=== PATIENT | male | born 1975 | race Caucasian/White ===

== ENCOUNTER 2021-04-25 08:53 | Day surgery (SDC) | payer OTHER, SELFPAY ==
--- NOTE | 2021-04-25 | COLBX_PTH ---
PATIENT: GRANT HAMEED LOC: [facility] U#:[id number] AGE/SX: 45/M ROOM: RE04/25/[address]: Dr. Arcadio Gleason DO : 1975 BED: DIS: 04/25/2021 SPEC #: [id number] RECD: 04/26/21 08:50 STATUS: MERT REDre #: [id number] STEFFEN: 04/25/21 00:[address]: Arcadio Gleason DEPT: SURGICAL PATHOLOGY RECD BY: Grant Montejo ENTERED: 04/26/21 08:51 SP TYPE: COLON BX OTHR DR: Kash Livingston, SALES REPRESENTATIVE [employer]-C Tissues: A - Ileum, NOS B - Transverse colon C - Rectum, NOS Procedures: Surgery Specimen Level IV HEADER OPERATION: Colonoscopy (MAC) PRE-OP DIAGNOSIS: Diverticulosis, diarrhea, lower GI bleed TISSUE SUBMITTED: A - Terminal ileum biopsy, B - Transverse colon polyp biopsy, C - Rectal polyp MICROSCOPIC DIAGNOSIS A. Terminal ileum, biopsy: No pathologic change. B. Transverse colon polyp, biopsy: Fragments of tubular adenoma. C. Rectal polyp, biopsy: Hyperplastic polyp. AM:patrick 04/27/2021 MICROSCOPIC DESCRIPTION Slides are reviewed. GROSS DESCRIPTION A - Received in fixative is one container labeled with the patient's name and designated terminal ileum biopsy. The specimen consists of one irregular fragment of light kelley soft tissue that measures 0.3 x 0.3 x 0.1 cm. The specimen is totally submitted in one cassette. B - Received in fixative is one container labeled with the patient's name and designated transverse colon biopsy of polyp. The specimen consists of multiple irregular fragments of light kelley soft tissue that in aggregate measure 0.7 x 0.5 x 0.1 cm. The specimen is totally submitted in one cassette. C - Received in fixative is one container labeled with the patient's name and designated rectal polyp. The specimen consists of one irregular fragment of light kelley soft tissue that measures 0.5 x 0.4 x 0.1 cm. The specimen is totally submitted in one cassette. / MELITON:patrick 04/26/21 TC:5 CPT: 34846 x3
[2021-04-25 09:34] VITALS: BP 141/82; PULSE 57; RESP 18; TEMP 36.3; O2SAT 99; BMI 50.2
[2021-04-25] MEDS: Lactated Ringers 1,000 ML 100 ML IV (09:42)
--- NOTE | 2021-04-25 10:38 | PCM.HP.BLA ---
History and Physical Date of Admission: 04/25/21 Intake Visit Reasons: HOSP FU FROM [facility] Is patient in pain?: Yes Allergies Sulfa (Sulfonamide Antibiotics) Adverse Reaction (Verified 04/20/21 13:47) Nausea Medications verapamil 240 mg PO DAILY 08/09/13 [History Confirmed 04/02/16] Omeprazole [Prilosec] 40 mg PO DAILY 04/02/16 [History Confirmed 04/02/16] dicyclomine 20 mg PO ACHS #20 cap 04/02/16 [Rx] ondansetron [Zofran Odt] 8 mg PO Q8H PRN PRN #10 04/02/16 [Rx] oxycodone-acetaminophen 1 tab PO Q4H PRN PRN #7 tablet 04/02/16 [Rx] prednisone 40 mg PO DAILY@0800 #10 tablet 04/02/16 [Rx Confirmed 04/20/21] albuterol sulfate 90 mcg/actuation aerosol inhaler 1 inh INHALATION ONCE 04/20/21 [History Confirmed 04/20/21] apixaban 5 mg tablet 10 mg PO BID tab 04/20/21 [History Confirmed 04/20/21] aspirin 81 mg tablet,delayed release 81 mg PO DAILY 04/20/21 [History Confirmed 04/20/21] bisacodyl 5 mg tablet,delayed release 20 mg PO ONCE #4 tab 04/20/21 [Rx Confirmed 04/20/21] cetirizine 10 mg capsule 10 mg PO DAILY PRN 04/20/21 [History Confirmed 04/20/21] ciprofloxacin HCl 500 mg tablet 500 mg PO Q12H #20 tab 04/20/21 [Rx Confirmed 04/20/21] fluticasone furoate 100 mcg-vilanterol 25 mcg/dose inhalation powder 1 inh INHALATION DAILY 04/20/21 [History Confirmed 04/20/21] metronidazole 500 mg tablet 500 mg PO TID #30 tab 04/20/21 [Rx Confirmed 04/20/21] nebivolol 5 mg tablet 5 mg PO BID tab 04/20/21 [History Confirmed 04/20/21] polyethylene glycol 3350 17 gram/dose oral powder 17 g PO DAILY #238 g 04/20/21 [Rx Confirmed 04/20/21] Nurse's Note: [facility] Medical History (Updated 04/20/21 @ 14:[address] Ervin Friend, DO) Allergies Arthritis Asthma Atrial fibrillation Back problem COPD (chronic obstructive pulmonary disease) Diarrhea Diverticulosis DVT (deep venous thrombosis) Gout HTN (hypertension) Hypertriglyceridemia Hypoglycemia IBS (irritable bowel syndrome) Liver disease Lower GI bleed Osteoarthritis Pulmonary embolism Umbilical hernia Surgical History (Updated 04/20/21 @ 13:50 by Nery Avila) History of vasectomy Social History Smoking Status: Former smoker HPI HPI Details: RICHIE HAMEED, is a 45 M who presents to the office today for lower GI bleeding, abdominal pain and bloating. Patient has history of DVT and PE and is on Eliquis and aspirin. His mother has a history of antiphospholipid syndrome. He also carries a history of gout and possible psoriasis. He has been not evaluated by draw off worker. He has been following up with a stock clipper who recently retired. He has had problems with his abdomen in regards to frequent bloating, urgency and diarrhea for several years. He had a CT scan abdomen pelvis back in 2016 which showed significant diverticular disease. He did not know that he had significant diverticular disease. Approximately 2 weeks ago he developed worsening feeling of pressure in his abdomen associated with pressure in his rectum and decreased appetite, discomfort and bloody stool for the last two weeks. Stools have been loose and goes 5-6 times a day and this frequency is normal to him. LLQ and mid lower abdominal pain describes it as nagging and makes him generally feel unwell. Eliquis started December of 2019 for for SVT, DVT and PE management. At this time he is having a lot of lower GI bleeding. They checked his blood count at the emergency room in it seems to be stable. However he is concerned because he needs to take Eliquis and aspirin on a daily basis. He also struggles with gout. He has tried multiple medicines but the only thing that really helps him is colchicine and prednisone. All other 16 review of systems are negative except the pertinent positive mentioned HPI. ROS Const Constitutional: Positive for fatigue, weakness and weight change Eyes Eyes: Positive for blurry vision, irritation, discharge, eye pain and Light sensitivity ENT ENT: Positive for ear or mastoid pain, hearing loss, tinnitus, nasal congestion and hoarseness Resp Respiratory: Positive for shortness of breath and wheezing Cardio Cardiology: Positive for chest pain at rest, leg pain with exertion, shortness of breath and dyspnea on exertion Gastro GI: Positive for abdominal pain, bloating, change in bowel habits, diarrhea, heartburn, Blood in stool and nausea/dyspepsia Genitourinary Male: Positive for urinary incontinence, urinary frequency and urinary urgency Musc Musculoskeletal: Positive for abnormal gait, joint pain, back pain, joint swelling, muscle cramps, muscle weakness, numbness, stiffness, tingling, Arthritis, sciatica, restless legs and leg pain with exertion Neuro Neurology: Positive for abnormal gait, weakness, numbness, tingling and restless legs Psych Psychiatric: Positive for inattentiveness Endo Endocrine: Positive for cold intolerance, fatigue, heat intolerance, increased thirst/drinking, increased urine leakage and weight change Aller/Imm Allergy/Immunologic: Positive for wheezing Cas/Lymp Hematologic/Lymphatic: Positive for easy bleeding and easy bruising Exam Const General: cooperative and comfortable Nutritional Appearance: average body habitus and well nourished HENMT Head: normal to inspection Ears: hearing grossly normal bilaterally Nose: external nose normal Face and sinus: normal facial exam Mouth: oral mucosae normal Throat: posterior oropharynx normal Eyes General: appearance normal, both eyes and all related structures Neck Neck: normal visual inspection Chest Chest palpation & inspection: normal inspection of the chest and normal palpation of entire chest wall Resp Effort & Inspection: normal respiratory effort Auscultation: Bilateral: Clear to Auscultation Cardio Palpation: normal PMI Rate: regular rate Rhythm: regular rhythm GI Inspection: normal to inspection Auscultation: normal bowel sounds Percussion: normal to percussion Palpation: no hepatosplenomegaly Skin General: no rashes or lesions noted Neuro General: patient alert Extrem General: normal to inspection Psych Affect: normal affect Quality Reporting Tobacco Screening ([facility] 138) Smoking Status: Former smoker Assessment and Plan Assessment and Plan (1) Diverticulosis: Status: Acute Orders: Orders: Colonoscopy 04/25/21 Plan - Dr. Ervin Friend, DO: Patient on imaging has a lot of diverticulosis. I suspect that he is having intermittent bleeding secondary to diverticular bleed. He will get a CBC checked. We will also put him on a high-fiber diet and give him a short course of antibiotics. (2) Lower GI bleed: Status: Acute Plan - Dr. Ervin Friend, DO: He will undergo evaluation of his lower GI tract to determine etiology of his lower GI bleeding and his diarrhea. He was explained alternatives, risk, benefits including understanding bleeding, infection, sepsis, perforation, need for emergent surgery . He will have an ASA of 3. He will hold his Eliquis 1 day prior to procedure. (3) Diarrhea: Status: Acute Plan Details Other Medications: New: bisacodyl 20 mg (4 x 5 mg) PO ONCE 4 tabs 0RF polyethylene glycol 3350 (Miralax) 17 grams PO DAILY 238 grams 0RF ciprofloxacin HCl (Cipro) 500 mg PO Q12H 20 tabs 0RF metronidazole 500 mg PO TID 30 tabs 0RF This is an update from an H&P that was done in the office. Nothing has changed since the patient was seen in office.
[2021-04-25 11:03] VITALS: BP 126/78; BP 141/82; PULSE 64; RESP 16; TEMP 36.2; O2SAT 96
--- NOTE | 2021-04-25 11:06 | OP.CCLET_ITS ---
03/21/2022 Tho Sykes Re : Colonoscopy procedure for Grant King Dear Yara This procedure was performed on Sunday, April 25, 2021. My impressions and recommendations are as follows: Impressions : - Five 5 mm polyps in the rectum, in the transverse colon and at the hepatic flexure, removed with a hot snare. Resected and retrieved. Recommendations : - Repeat colonoscopy in 3 years for surveillance based on pathology results. - Return to GI office in 2 weeks. - Continue present medications. My findings are described in the full procedure note, which is enclosed. If I can be of further assistance, please feel free to contact me at . Sincerely, Arcadio Gleason, 04/25/2021 11:05:47 AM This report has been signed electronically.
--- NOTE | 2021-04-25 11:06 | OP.COLON_ITS ---
Patient Name: Grant King Procedure Date: 04/25/2021 10:31 AM Date of : 1975 Age: 45 Procedure: Colonoscopy Indications: Screening for colorectal malignant neoplasm Providers: Arcadio Gleason DO Referring MD: Tho Sykes Medicines: Monitored Anesthesia Care Patient Profile: This is a 45 year old male. Refer to note in patient chart for documentation of history and physical. Last Colonoscopy: none. The patient's first colonoscopy is today. Complications: No immediate complications. Procedure: Pre-Anesthesia Assessment: - Prior to the procedure, a History and Physical was performed, and patient medications and allergies were reviewed. The patient is competent. The risks and benefits of the procedure and the sedation options and risks were discussed with the patient. All questions were answered and informed consent was obtained. Patient identification and proposed procedure were verified by the physician in the pre-procedure area. Mental Status Examination: alert and oriented. Respiratory Examination: clear to auscultation. CV Examination: normal. Prophylactic Antibiotics: The patient does not require prophylactic antibiotics. Prior Anticoagulants: The patient has taken no previous anticoagulant or antiplatelet agents. ASA Grade Assessment: II - A patient with mild systemic disease. After reviewing the risks and benefits, the patient was deemed in satisfactory condition to undergo the procedure. The anesthesia plan was to use moderate sedation / analgesia (conscious sedation). Immediately prior to administration of medications, the patient was re-assessed for adequacy to receive sedatives. The heart rate, respiratory rate, oxygen saturations, blood pressure, adequacy of pulmonary ventilation, and response to care were monitored throughout the procedure. The physical status of the patient was re-assessed after the procedure. After I obtained informed consent, the scope was passed under direct vision. Throughout the procedure, the patient's blood pressure, pulse, and oxygen saturations were monitored continuously. The colonoscope was introduced through the anus and advanced to the cecum, identified by appendiceal orifice and ileocecal valve. There was some mild inflammation seen in the terminal ileum and biopsies were taken. The colonoscopy was performed without difficulty. The patient tolerated the procedure well. The quality of the bowel preparation was good. Moderate Sedation: Moderate (conscious) sedation was administered by the endoscopy nurse and supervised by the endoscopist. The patient's oxygen saturation, heart rate, blood pressure and response to care were monitored. Scope In: 10:44:24 AM Scope Withdrawal Time 0 hours 13 minutes 40 seconds Scope Out: 10:59:55 AM Total Procedure Duration Time 0 hours 15 minutes 31 seconds Findings: The perianal and digital rectal examinations were normal. Five sessile polyps were found in the rectum, transverse colon and hepatic flexure. The polyps were 5 mm in size. These polyps were removed with a hot snare. Resection and retrieval were complete. Verification of patient identification for the specimen was done. Estimated blood loss was minimal. Impression: - Five 5 mm polyps in the rectum, in the transverse colon and at the hepatic flexure, removed with a hot snare. Resected and retrieved. Recommendation: - Repeat colonoscopy in 3 years for surveillance based on pathology results. - Return to GI office in 2 weeks. - Continue present medications. Procedure Code(s): --- Professional --- 63178, Colonoscopy, flexible; with removal of tumor(s), polyp(s), or other lesion(s) by snare technique CPT copyright 2017 [employer]. All rights reserved. The codes documented in this report are preliminary and upon papeterie table assembler review may be revised to meet current compliance requirements. Arcadio Gleason DO 04/25/2021 11:05:47 AM This report has been signed electronically. Number of Addenda: 1 Note Initiated On: 04/25/2021 10:31 AM Addendum Number: 1 Addendum Date: 03/21/2022 4:21:14 PM MAC was used instead of moderate sedation for this patient. Arcadio Gleason DO 03/21/2022 4:21:20 PM This report has been signed electronically.
[2021-04-25 11:10] VITALS: BP 118/77; BP 141/82; PULSE 55; RESP 16; O2SAT 96
[2021-04-25 11:15] VITALS: BP 116/72; BP 141/82; PULSE 51; RESP 16; TEMP 36.3; O2SAT 96
[2021-04-25 11:47] VITALS: BP 141/82
== END 2021-04-25 11:56 ==
LOC: EN 08:55 → AC 08:56
PROVIDERS: PCP Nurse Practitioner Primary Care; Referring Provider Nurse Practitioner Primary Care; Visit Provider Internal Medicine Gastroenterology
PROC: 0DJD8ZZ Inspection of Lower Intestinal Tract, Via Natural or Artificial Opening Endoscopic (ICD-10-PCS; CPT 45378; principal; 2021-04-25 09:55)
DX: Z12.11 Encounter for screening for malignant neoplasm of colon (principal); D12.3 Benign neoplasm of transverse colon; K62.1 Rectal polyp; K57.30 Diverticulosis of large intestine without perforation or abscess without bleeding; M19.90 Unspecified osteoarthritis, unspecified site; J44.9 Chronic obstructive pulmonary disease, unspecified; I48.91 Unspecified atrial fibrillation; I10 Essential (primary) hypertension; E78.00 Pure hypercholesterolemia, unspecified; M10.9 Gout, unspecified; Z86.718 Personal history of other venous thrombosis and embolism; Z86.711 Personal history of pulmonary embolism; Z79.02 Long term (current) use of antithrombotics/antiplatelets; Z79.51 Long term (current) use of inhaled steroids; Z79.899 Other long term (current) drug therapy; Z87.891 Personal history of nicotine dependence
CPT/HCPCS: 45380; 87426; 88305; J7120; J2405

== ENCOUNTER → 2021-05-12 07:05 | Outpatient (CLI) | payer OTHER, SELFPAY ==
[2021-05-13 13:30] LABS: Immunoglobulin G 853 mg/dL (603-1613)
[2021-05-14 13:07] LABS: Anti-Centromere B Ab <0.2 AI (0.0-0.9); Anti-Chromatin <0.2 AI (0.0-0.9); Anti-Jo <0.2 AI (0.0-0.9); Anti-Scleroderma-70 AB <0.2 AI (0.0-0.9); RNP Ab 0.2 AI (0.0-0.9); SJOGREN'S Anti-SS-A test < 0.2 AI (0.0-0.9); SJOGREN'S Anti-SS-B test < 0.2 AI (0.0-0.9); Smith Ab <0.2 AI (0.0-0.9)
[2021-05-14 13:19] LABS: Anti-dsDNA Ab 1 IU/mL (0-9)
== END ==
PROVIDERS: PCP Nurse Practitioner Primary Care; Referring Provider Internal Medicine Gastroenterology; Visit Provider Internal Medicine Gastroenterology
DX: R19.7 Diarrhea, unspecified (principal)
CPT/HCPCS: 36415; 82784; 86225; 86235

== ENCOUNTER 2021-07-27 09:05 | Outpatient (CLI) | payer OTHER, SELFPAY ==
--- NOTE | 2021-07-27 09:13 | RAD_ITS ---
STUDY: X-RAY - PELVIS REASON FOR EXAM: Male, 45 years old. SPONDYLOSIS TECHNIQUE: One view of the pelvis was obtained. COMPARISON: None. FINDINGS: There is a non-specific bowel gas pattern. Normal visualized soft tissue structures. There is narrowing with cortical sclerosis and osteophyte formation of the sacroiliac joint consistent with degenerative osteoarthritic changes. This is worse on the right side. Normal visualized bilateral superior and inferior pubic rami. Normal pubic symphysis. Normal ischial tuberosities. Normal visualized right femoral head. Normal right acetabulum. Normal right hip joint. Normal visualized left femoral head. Normal left acetabulum. Normal left hip joint. RAD/Pelvis 1 or 2 Views IMPRESSION: Joint space narrowing of the right sacroiliac joint with sclerosis. Electronically Signed: Bashir Bustillos MD at 13:35 EST , Service support ,
--- NOTE | 2021-07-27 09:14 | RAD_ITS ---
STUDY: X-RAY CHEST REASON FOR EXAM: Male, 45 years old. SPONDYLOSIS TECHNIQUE: PA and lateral views of the chest. COMPARISON: None. FINDINGS: There is hyperinflation of the lungs consistent with chronic obstructive lung disease (COPD). There is no demonstrated pleural abnormality. Normal size heart. Normal mediastinum and parminder. Normal visualized pulmonary arteries. Normal visualized aortic arch and descending thoracic aorta. There are diffuse degenerative changes of the visualized thoracic spine. Normal visualized ribs, clavicles, and shoulders. There is no demonstrated abnormality of the visualized soft tissue structures of the upper abdomen. RAD/Chest PA and Lateral IMPRESSION: Hyperinflation. Electronically Signed: Bashir Bustillos MD at 13:35 EST , Service support ,
[2021-07-27 10:09] LABS: Absolute Lymphocyte Count 2.06 X10^3/uL (0.83-4.51); Absolute Neutrophil Count 3.5 X10^3/uL (2.0-7.7); Basophil# 0.03 X10^3/uL; Basophil% 0.5 % (0-1); Eosinophils% 1.6 % (0-5); Hematocrit 44.5 % (40-54); Hemoglobin 14.9 g/dL (13.0-16.5); Lymphocyte # 2.06 X10^3/ul (0.83-4.51); Lymphocyte % 32.9 % (19-41); Mean Corp Hgb Conc 33.5 g/dL (32-36); Mean Corpuscular Hgb 29.7 pg (27.0-32.0); Mean Corpuscular Volume 88.8 fL (80-94); Mean Platelet Vol. 10.2 fl (6.2-12.0); NRBC Flagged by Analyzer 0 % (0-5); Neutrophil # 3.53 X10^3/uL (2.7-7.7); Neutrophil % 56.4 % (47-70); Platelet Count 216 K/mm3 (150-450); RBC Distribution Width CV 12.9 % (11.6-14.6); RBC Distribution Width SD 41.7 fl (35.1-43.9); Red Blood Count 5.01 M/mm3 (4.6-6.2); White Blood Count 6.3 K/mm3 (4.4-11.0)
[2021-07-27 10:53] LABS: ALB/GLOB Ratio 1.1 RATIO (0.9-2.4); AST(SGOT) 19 U/L (15-37); Alanine Aminotransfer ALT/SGPT 49 U/L (16-61); Albumin, Serum 4.1 g/dL (3.2-5.0); Alkaline Phosphatase 53 U/L (45-117); Anion Gap 8 (5-15); BUN 15 mg/dL (7-18); BUN/Creat Ratio 18.1 RATIO (10-20); CRP < 2.90 mg/L (0.0-3.0); Calcium,Total 9.6 mg/dL (8.5-10.1); Chloride 108 mmol/L (98-107); Creatinine, Serum 0.83 mg/dL (0.70-1.30); EST Glomerular Filtration Rate 106 mL/min (>60); Est Glom Filt Rate - Afr Amer 128 mL/min (>60); Globulin 3.6 g/dL (2.2-4.2); Glucose 102 mg/dL (74-106); Potassium 4.1 mmol/L (3.5-5.1); Protein, Total 7.7 g/dL (6.4-8.2); Rheumatoid Factor < 10.0 IU/mL (<15); Sodium Level 140 mmol/L (136-145); Uric Acid 8.8 mg/dL (3.5-7.2)
[2021-07-27 11:09] LABS: Hepatitis B Surface Antibody Non-Reactive; Hepatitis B Surface Antigen Non-Reactive (Nonreactive); Hepatitis C Antibody Non-Reactive (Nonreactive)
[2021-07-27 11:11] LABS: Erythrocyte Sedimentation Rate 20 mm/hr (0-20)
[2021-07-28 12:12] LABS: ANTINUCLEAR ANTIBODIES DIRECT Negative (Negative)
[2021-07-31 04:07] LABS: QNTFERON TB Mitogen Value > 10.00 IU/mL (.); QNTFERON TB Nil Value 0.05 IU/mL (.); QNTFERON TB1+ Ag Value 0.95 IU/mL (.); QNTFERON TB2+ Ag Value 0.96 IU/mL (.)
[2021-07-31 08:49] LABS: CCP IgG Antibodies 4 units (0-19); QNTIFERON TB Positive Criteria Positive (Negative)
== END 2021-07-27 23:59 | disposition short-term general hospital (02) ==
PROVIDERS: PCP Nurse Practitioner Primary Care; Referring Provider Internal Medicine Rheumatology; Visit Provider Internal Medicine Rheumatology
DX: L40.59 Other psoriatic arthropathy (principal); J44.9 Chronic obstructive pulmonary disease, unspecified; I48.91 Unspecified atrial fibrillation; L40.8 Other psoriasis; M47.897 Other spondylosis, lumbosacral region; M21.41 Flat foot [pes planus] (acquired), right foot; K76.0 Fatty (change of) liver, not elsewhere classified; H93.13 Tinnitus, bilateral; Z86.718 Personal history of other venous thrombosis and embolism
CPT/HCPCS: 36415; 71046; 72170; 80053; 84550; 85025; 85652; 86038; 86140; 86200; 86431; 86480; 86706; 86803; 87340

== ENCOUNTER 2021-09-05 07:31 | Outpatient (CLI) | payer OTHER, SELFPAY ==
--- NOTE | 2021-09-05 07:34 | CT_ITS ---
STUDY: CT ABDOMEN AND PELVIS WITH CONTRAST REASON FOR EXAM: Male, 45 years old. History of chronic diffuse abdominal pain and left lower quadrant pain. RADIATION DOSAGE (If Supplied By Facility): CTDIvol = ( 15.41 ) mGy, DLP = ( 1332.29 ) mGycm TECHNIQUE: Transaxial images were obtained from the dome of the diaphragm to the symphysis pubis with oral contrast. Oral and amp; IV Gastrografin and amp; 100mL Isovue-300 was administered. Sagittal and coronal images were reconstructed. Individualized dose optimization techniques were used for this CT. COMPARISON: Comparison is made with prior examination dated 08/09/2013. FINDINGS: The visualized lung bases are unremarkable. The visualized portions of the heart are within normal limits. There is decreased attenuation of the liver consistent with steatosis. Normal gallbladder and extrahepatic biliary system. Normal spleen. Normal pancreas. Normal bilateral adrenal glands. Normal right kidney. Normal left kidney. Normal visualized stomach. Normal small intestine. Moderate amount of fecal material is seen in the colon. Scattered sigmoid diverticula. The appendix is visualized and appears normal. Normal abdominal aorta. Normal inferior vena cava. There is borderline retroperitoneal lymphadenopathy with enlarged nodes no greater than 10mm in the short axis diameter. Normal urinary bladder. Normal abdominal wall. There are mild degenerative changes of the visualized lumbar spine. CT/Abdomen/Pelvis WITH Contrast IMPRESSION: Diffuse fatty infiltration of the liver. Scattered sigmoid diverticula. Electronically Signed: Bashir Bustillos MD at 9:33 EST ,
[2021-09-05 08:00] LABS: CREATININE FINGERSTICK 0.9 mg/dL (0.70-1.30); EGFR FINGERSTICK > 60.0000 mL/min (>60)
== END 2021-09-05 23:59 | disposition home or self-care (01) ==
PROVIDERS: PCP Nurse Practitioner Primary Care; Referring Provider Internal Medicine Gastroenterology; Visit Provider Internal Medicine Gastroenterology
DX: R10.9 Unspecified abdominal pain (principal)
CPT/HCPCS: 74177; Q9967

== ENCOUNTER 2021-09-21 09:48 | Outpatient (CLI) | payer OTHER, SELFPAY ==
[2021-09-21 10:46] LABS: Erythrocyte Sedimentation Rate 4 mm/hr (0-20); Prothrombin Time (Protime)PT. 12.4 SECONDS (11.7-14.9)
[2021-09-21 10:50] LABS: Absolute Lymphocyte Count 2.19 X10^3/uL (0.83-4.51); Absolute Neutrophil Count 2.9 X10^3/uL (2.0-7.7); Basophil# 0.06 X10^3/uL; Eosinophil# 0.12 X10^3/uL; Eosinophils% 2.1 % (0-5); Hemoglobin 14.1 g/dL (13.0-16.5); Lymphocyte # 2.19 X10^3/ul (0.83-4.51); Lymphocyte % 37.9 % (19-41); Mean Corp Hgb Conc 34.4 g/dL (32-36); Mean Corpuscular Hgb 31.1 pg (27.0-32.0); Mean Corpuscular Volume 90.3 fL (80-94); Mean Platelet Vol. 10.1 fl (6.2-12.0); Monocyte# 0.52 X10^3/uL; NRBC Flagged by Analyzer 0 % (0-5); Neutrophil # 2.86 X10^3/uL (2.7-7.7); Neutrophil % 49.5 % (47-70); Platelet Count 184 K/mm3 (150-450); RBC Distribution Width CV 13.3 % (11.6-14.6); RBC Distribution Width SD 44.2 fl (35.1-43.9); Red Blood Count 4.54 M/mm3 (4.6-6.2); White Blood Count 5.8 K/mm3 (4.4-11.0)
[2021-09-21 11:13] LABS: ALB/GLOB Ratio 1.2 RATIO (0.9-2.4); AST(SGOT) 14 U/L (15-37); Alanine Aminotransfer ALT/SGPT 39 U/L (16-61); Alkaline Phosphatase 44 U/L (45-117); Anion Gap 5 (5-15); BUN 16 mg/dL (7-18); BUN/Creat Ratio 17.2 RATIO (10-20); Bilirubin, Direct 0.29 mg/dL (0.00-0.30); CRP < 2.90 mg/L (0.0-3.0); Calcium,Total 8.9 mg/dL (8.5-10.1); Chloride 109 mmol/L (98-107); Cholesterol 197 mg/dL (200); Creatinine, Serum 0.93 mg/dL (0.70-1.30); EST Glomerular Filtration Rate 92 mL/min (>60); Est Glom Filt Rate - Afr Amer 112 mL/min (>60); Ferritin 162 ng/mL (26-388); Globulin 3.4 g/dL (2.2-4.2); Glucose 106 mg/dL (74-106); High Density Lipoprotein 47 mg/dL; LDH 159 U/L (87-241); Protein, Total 7.4 g/dL (6.4-8.2); Sodium Level 141 mmol/L (136-145); Triglycerides 310 mg/dL; Very Low Density Lipoprotein 62 mg/dL (5-40)
[2021-09-21 11:17] LABS: Hemoglobin A1c 5.4 % (3.8-5.6)
[2021-09-21 11:33] LABS: HIV - WCH Non-Reactive (Nonreactive)
[2021-09-24 12:18] LABS: Anti-Mitochondrial AB <20.0 Units (0.0-20.0)
[2021-09-25 04:07] LABS: Angiotensin Convert Enzyme 24 U/L (14-82); Ceruloplasmin 17.2 mg/dL (16.0-31.0); Cytoplasmic Ab (C-ANCA) <1:20 titer (Neg:<1:20); Endomysial Antibody IgA Negative (Negative); Immunoglobulin A 131 mg/dL (90-386)
[2021-09-25 11:54] LABS: Anti-Smooth Muscle ABS 4 Units (0-19); Copper, Serum or Plasma 74 ug/dL (69-132); Haptoglobin 80 mg/dL (23-355); Perinuclear Ab (P-ANCA) <1:20 titer (Neg:<1:20); t-Transglutaminase IgA <2 U/mL (0-3)
== END 2021-09-21 23:59 | disposition home or self-care (01) ==
LOC: LAB 09:49
PROVIDERS: PCP Nurse Practitioner Primary Care; Referring Provider Nurse Practitioner Adult Health; Visit Provider Nurse Practitioner Adult Health
DX: K76.0 Fatty (change of) liver, not elsewhere classified (principal)
CPT/HCPCS: 36415; 80053; 80061; 82105; 82140; 82164; 82248; 82390; 82525; 82728; 82784; 83010; 83036; 83516; 83615; 85025; 85610; 85652; 86140; 86255; 86256; 86703

== ENCOUNTER 2021-10-18 07:48 | Outpatient (CLI) | payer OTHER, SELFPAY ==
--- NOTE | 2021-10-18 07:52 | US_ITS ---
STUDY: ABDOMINAL ULTRASOUND - ELASTOGRAPHY REASON FOR VISIT: Male, 45 years old. Fatty infiltration of the liver. TECHNIQUE: Liver stiffness measurements were obtained on a [employer] RS 85 ultrasound machine using a CA 1-7 probe following the SRU guidelines. 3 measurements were obtained using a 2-D-SWE method. The IQR/M was 12% suggesting a quality data set. TECHNICAL QUALITY: Adequate. COMPARISON: Comparison is made with prior sonogram of the right upper quadrant done earlier today. FINDINGS: Liver: Fatty infiltration of the liver. Median liver stiffness measured 6.3 kPa. US/Elastography Parenchyma/Organ IMPRESSION: Liver stiffness measures 6.3 kPa compatible with F2-F3 (Mild to moderate liver fibrosis) Metavir score. Electronically Signed: Bashir Bustillos MD at 9:44 EDT ,
--- NOTE | 2021-10-18 07:55 | US_ITS ---
STUDY: ABDOMINAL ULTRASOUND - RIGHT UPPER QUADRANT REASON FOR VISIT: Male, 45 years old FATTY LIVER TECHNIQUE: Ultrasound evaluation of the right upper quadrant was performed with real-time and static vick-scale imaging. TECHNICAL QUALITY: Adequate. COMPARISON: Comparison is made with prior CT scan of the abdomen dated 09/05/2021. FINDINGS: Liver: The liver measures 15.3 cm. There is increased echogenicity consistent with fatty infiltration. Focal fatty sparing is seen along the gallbladder fossa. The bile ducts are within normal limits. There is hepatic color flow. The direction of portal flow is hepatopetal. There is no demonstrated mass lesion. Gallbladder: Normal distended gallbladder. The gallbladder wall measures 2.9 mm. There is a negative sonographic Ridley''s sign. There is no pericholecystic fluid. There are no gallstones. Common Bile Duct (C.B.D.): The common bile duct measures 4.5 mm. Pancreas: Normal size of the head, body of the pancreas. The tail portion is obscured due to overlying bowel gas. There is increased echogenicity of the pancreas. There is no demonstrated pancreatic mass or cyst. Right Kidney: Normal size of the right kidney. The right kidney measures 13.1 cm x 6.1 cm x 5 cm. Normal renal cortex. The right cortex measures 2 cm. There is no demonstrated renal mass or cyst. There is no right hydronephrosis. US/Abdomen Limited IMPRESSION: Fatty infiltration of the liver with focal fatty sparing seen in the region of the gallbladder fossa. Electronically Signed: Bashir Bustillos MD at 9:43 EDT ,
== END 2021-10-18 23:59 | disposition home or self-care (01) ==
LOC: US 07:51
PROVIDERS: PCP Nurse Practitioner Primary Care; Referring Provider Nurse Practitioner Adult Health; Visit Provider Nurse Practitioner Adult Health
DX: K76.0 Fatty (change of) liver, not elsewhere classified (principal)
CPT/HCPCS: 76705; 76981

== ENCOUNTER 2021-11-05 09:35 | Outpatient (CLI) | payer OTHER, SELFPAY ==
[2021-11-05 10:04] LABS: Absolute Lymphocyte Count 2.34 X10^3/uL (0.83-4.51); Absolute Neutrophil Count 2.5 X10^3/uL (2.0-7.7); Basophil# 0.04 X10^3/uL; Basophil% 0.7 % (0-1); Eosinophil# 0.07 X10^3/uL; Eosinophils% 1.3 % (0-5); Hematocrit 38.8 % (40-54); Hemoglobin 13.2 g/dL (13.0-16.5); Lymphocyte # 2.34 X10^3/ul (0.83-4.51); Lymphocyte % 43.4 % (19-41); Mean Corpuscular Hgb 31.7 pg (27.0-32.0); Mean Platelet Vol. 9.9 fl (6.2-12.0); Monocyte# 0.48 X10^3/uL; Monocyte% 8.9 % (0-10); NRBC Flagged by Analyzer 0 % (0-5); Neutrophil # 2.45 X10^3/uL (2.7-7.7); Neutrophil % 45.5 % (47-70); Platelet Count 164 K/mm3 (150-450); RBC Distribution Width CV 13.3 % (11.6-14.6); RBC Distribution Width SD 45.5 fl (35.1-43.9); Red Blood Count 4.17 M/mm3 (4.6-6.2); White Blood Count 5.4 K/mm3 (4.4-11.0)
[2021-11-05 10:28] LABS: ALB/GLOB Ratio 1.2 RATIO (0.9-2.4); AST(SGOT) 16 U/L (15-37); Alanine Aminotransfer ALT/SGPT 35 U/L (16-61); Albumin, Serum 3.8 g/dL (3.2-5.0); Alkaline Phosphatase 36 U/L (45-117); Anion Gap 3 (5-15); BUN 12 mg/dL (7-18); CPK Total, Creatine Kinase 169 U/L (39-308); Calcium,Total 8.8 mg/dL (8.5-10.1); Chloride 108 mmol/L (98-107); Creatinine, Serum 0.92 mg/dL (0.70-1.30); EST Glomerular Filtration Rate 93 mL/min (>60); Est Glom Filt Rate - Afr Amer 113 mL/min (>60); Globulin 3.1 g/dL (2.2-4.2); Glucose 95 mg/dL (74-106); Potassium 3.9 mmol/L (3.5-5.1); Protein, Total 6.9 g/dL (6.4-8.2); Sodium Level 141 mmol/L (136-145)
[2021-11-05 10:33] LABS: Lactic Acid 1.1 mmol/L (0.4-1.9)
== END 2021-11-05 23:59 | disposition home or self-care (01) ==
LOC: LAB 09:36
PROVIDERS: PCP Nurse Practitioner Primary Care; Referring Provider Nurse Practitioner Adult Health; Visit Provider Nurse Practitioner Adult Health
DX: R25.2 Cramp and spasm (principal)
CPT/HCPCS: 36415; 80053; 82550; 83605; 85025

== ENCOUNTER → 2021-12-14 | Outpatient (CLI) | payer OTHER, SELFPAY ==
[2021-12-14 15:31] LABS: AST(SGOT) 12 U/L (15-37); Alanine Aminotransfer ALT/SGPT 37 U/L (16-61); Alkaline Phosphatase 37 U/L (45-117); Bilirubin, Direct 0.16 mg/dL (0.00-0.30); Globulin 3.2 g/dL (2.2-4.2); Protein, Total 7.2 g/dL (6.4-8.2)
== END | disposition home or self-care (01) ==
LOC: MTLAB 11:56
PROVIDERS: PCP Nurse Practitioner Primary Care; Referring Provider Internal Medicine Pulmonary Disease; Visit Provider Internal Medicine Pulmonary Disease
DX: Z86.15 Personal history of latent tuberculosis infection (principal)
CPT/HCPCS: 36415; 80076

== ENCOUNTER → 2021-12-31 | Outpatient (CLI) | payer OTHER, SELFPAY ==
[2021-12-31 09:22] LABS: Cholesterol 208 mg/dL (200); High Density Lipoprotein 42 mg/dL; Triglycerides 292 mg/dL; Very Low Density Lipoprotein 58 mg/dL (5-40)
== END | disposition home or self-care (01) ==
LOC: LAB 08:26
PROVIDERS: PCP Nurse Practitioner Primary Care; Visit Provider Nurse Practitioner Adult Health
DX: E78.1 Pure hyperglyceridemia (principal)
CPT/HCPCS: 36415; 80061

== ENCOUNTER → 2022-01-11 | Outpatient (CLI) | payer OTHER, SELFPAY ==
[2022-01-11 15:03] LABS: Platelet Count 148 K/mm3 (150-450)
[2022-01-11 17:53] LABS: AST(SGOT) 14 U/L (15-37); Alanine Aminotransfer ALT/SGPT 31 U/L (16-61); Albumin, Serum 4.1 g/dL (3.2-5.0); Alkaline Phosphatase 43 U/L (45-117); Globulin 3.4 g/dL (2.2-4.2); Protein, Total 7.5 g/dL (6.4-8.2)
== END | disposition home or self-care (01) ==
LOC: MTLAB 11:52
PROVIDERS: PCP Nurse Practitioner Primary Care; Referring Provider Internal Medicine Pulmonary Disease; Visit Provider Internal Medicine Pulmonary Disease
DX: Z86.15 Personal history of latent tuberculosis infection (principal)
CPT/HCPCS: 36415; 80076; 85049

== ENCOUNTER → 2022-01-16 | Outpatient (CLI) | payer OTHER, SELFPAY ==
[2022-01-16 09:52] LABS: Absolute Lymphocyte Count 1.84 X10^3/uL (0.83-4.51); Absolute Neutrophil Count 3.2 X10^3/uL (2.0-7.7); Basophil# 0.06 X10^3/uL; Eosinophil# 0.19 X10^3/uL; Eosinophils% 3.2 % (0-5); Hematocrit 43.8 % (40-54); Hemoglobin 14.6 g/dL (13.0-16.5); Lymphocyte # 1.84 X10^3/ul (0.83-4.51); Lymphocyte % 31.2 % (19-41); Mean Corp Hgb Conc 33.3 g/dL (32-36); Mean Corpuscular Hgb 31.6 pg (27.0-32.0); Mean Corpuscular Volume 94.8 fL (80-94); Mean Platelet Vol. 10.3 fl (6.2-12.0); Monocyte# 0.59 X10^3/uL; NRBC Flagged by Analyzer 0 % (0-5); Neutrophil # 3.18 X10^3/uL (2.7-7.7); Neutrophil % 54.1 % (47-70); Platelet Count 166 K/mm3 (150-450); RBC Distribution Width SD 44.9 fl (35.1-43.9); Red Blood Count 4.62 M/mm3 (4.6-6.2); White Blood Count 5.9 K/mm3 (4.4-11.0)
[2022-01-16 09:54] LABS: Color, Urine Yellow (Yellow); Glucose, Dipstick Normal (Normal); Ketone-Dipstick Negative (Negative); Leukocyte Esterase-Dipstick Negative /ul (Negative); Nitrite-Dipstick Negative (Negative); Occult Blood-Urine Negative /ul (Negative); Protein-Dipstick Negative (Negative); Urine Bilirubin Dipstick Negative (Negative); Urine Clarity Clear (Clear); Urine Urobilinogen Normal (Normal)
== END | disposition home or self-care (01) ==
PROVIDERS: PCP Nurse Practitioner Primary Care; Referring Provider Internal Medicine Pulmonary Disease; Visit Provider Internal Medicine Pulmonary Disease
DX: Z86.15 Personal history of latent tuberculosis infection (principal)
CPT/HCPCS: 36415; 81002; 85025

== ENCOUNTER → 2022-02-07 | Outpatient (CLI) | payer OTHER, SELFPAY ==
[2022-02-07 11:15] LABS: AST(SGOT) 12 U/L (15-37); Alanine Aminotransfer ALT/SGPT 28 U/L (16-61); Albumin, Serum 3.7 g/dL (3.2-5.0); Alkaline Phosphatase 52 U/L (45-117); Bilirubin, Direct 0.18 mg/dL (0.00-0.30); Globulin 3.3 g/dL (2.2-4.2)
== END | disposition home or self-care (01) ==
LOC: LAB 08:58
PROVIDERS: PCP Nurse Practitioner Primary Care; Referring Provider Internal Medicine Pulmonary Disease; Visit Provider Internal Medicine Pulmonary Disease
DX: Z86.15 Personal history of latent tuberculosis infection (principal)
CPT/HCPCS: 36415; 80076

== ENCOUNTER → 2022-03-14 | Outpatient (CLI) | payer OTHER, SELFPAY ==
[2022-03-14 08:12] LABS: Absolute Lymphocyte Count 1.94 X10^3/uL (0.83-4.51); Absolute Neutrophil Count 2.6 X10^3/uL (2.0-7.7); Basophil# 0.04 X10^3/uL; Basophil% 0.7 % (0-1); Eosinophil# 0.21 X10^3/uL; Eosinophils% 3.9 % (0-5); Hematocrit 42.5 % (40-54); Lymphocyte # 1.94 X10^3/ul (0.83-4.51); Lymphocyte % 35.8 % (19-41); Mean Corp Hgb Conc 32.9 g/dL (32-36); Mean Corpuscular Hgb 30.2 pg (27.0-32.0); Mean Corpuscular Volume 91.6 fL (80-94); Mean Platelet Vol. 10.4 fl (6.2-12.0); Monocyte# 0.64 X10^3/uL; Monocyte% 11.8 % (0-10); NRBC Flagged by Analyzer 0 % (0-5); Neutrophil # 2.57 X10^3/uL (2.7-7.7); Neutrophil % 47.4 % (47-70); Platelet Count 204 K/mm3 (150-450); RBC Distribution Width CV 12.7 % (11.6-14.6); RBC Distribution Width SD 42.2 fl (35.1-43.9); Red Blood Count 4.64 M/mm3 (4.6-6.2); White Blood Count 5.4 K/mm3 (4.4-11.0)
[2022-03-14 08:50] LABS: ALB/GLOB Ratio 1.1 RATIO (0.9-2.4); AST(SGOT) 20 U/L (15-37); Alanine Aminotransfer ALT/SGPT 39 U/L (16-61); Alkaline Phosphatase 57 U/L (45-117); Anion Gap 6 (5-15); BUN 14 mg/dL (7-18); BUN/Creat Ratio 13.3 RATIO (10-20); Calcium,Total 9.4 mg/dL (8.5-10.1); Chloride 109 mmol/L (98-107); Creatinine, Serum 1.05 mg/dL (0.70-1.30); EST Glomerular Filtration Rate 80 mL/min (>60); Est Glom Filt Rate - Afr Amer 97 mL/min (>60); Globulin 3.6 g/dL (2.2-4.2); Glucose 101 mg/dL (74-106); Potassium 4.2 mmol/L (3.5-5.1); Protein, Total 7.6 g/dL (6.4-8.2); Sodium Level 141 mmol/L (136-145); Uric Acid 7.3 mg/dL (3.5-7.2)
== END | disposition home or self-care (01) ==
LOC: LAB 07:40
PROVIDERS: PCP Nurse Practitioner Primary Care; Referring Provider Internal Medicine Rheumatology; Visit Provider Internal Medicine Rheumatology
DX: L40.59 Other psoriatic arthropathy (principal); J44.9 Chronic obstructive pulmonary disease, unspecified; I48.91 Unspecified atrial fibrillation; L40.8 Other psoriasis; M10.9 Gout, unspecified; M47.897 Other spondylosis, lumbosacral region; K76.0 Fatty (change of) liver, not elsewhere classified; K58.0 Irritable bowel syndrome with diarrhea; G47.33 Obstructive sleep apnea (adult) (pediatric); E78.5 Hyperlipidemia, unspecified; K57.90 Diverticulosis of intestine, part unspecified, without perforation or abscess without bleeding; H93.13 Tinnitus, bilateral; M21.41 Flat foot [pes planus] (acquired), right foot; Z86.718 Personal history of other venous thrombosis and embolism; Z86.711 Personal history of pulmonary embolism; Z79.899 Other long term (current) drug therapy
CPT/HCPCS: 36415; 80053; 84550; 85025

== ENCOUNTER → 2022-10-18 | Outpatient (CLI) | payer OTHER, SELFPAY ==
--- NOTE | 2022-10-18 10:11 | US_ITS ---
STUDY: ABDOMINAL ULTRASOUND - RIGHT UPPER QUADRANT REASON FOR VISIT: Male, 46 years old f/u elastography -- limited . Fatty infiltration of the liver. TECHNIQUE: Ultrasound evaluation of the right upper quadrant was performed with real-time and static vick-scale imaging. TECHNICAL QUALITY: Adequate. COMPARISON: Comparison is made with prior examination October 18, 2021. FINDINGS: Liver: The liver is enlarged and measures 23 cm. There is increased echogenicity consistent with fatty infiltration. Focal fatty sparing is seen along the region of the gallbladder fossa. The bile ducts are within normal limits. There is hepatic color flow. The direction of portal flow is hepatopetal. There is no demonstrated mass lesion. Gallbladder: Normal distended gallbladder. The gallbladder wall measures 2.3 mm. There is a negative sonographic Ridley''s sign. There is no pericholecystic fluid. There are no gallstones. 2 small gallbladder polyps are seen measuring 3 mm x 3 mm x 3 mm. Common Bile Duct (C.B.D.): The common bile duct measures 3.5 mm. Pancreas: Normal size of the head, body and tail of the pancreas. There is increased echogenicity of the pancreas. There is no demonstrated pancreatic mass or cyst. Right Kidney: Normal size of the right kidney. The right kidney measures 13 cm x 5.5 cm x 5.1 cm. Normal renal cortex. The right cortex measures 1.4 cm. There is no demonstrated renal mass or cyst. There is no right hydronephrosis. US/Abdomen Limited IMPRESSION: Hepatomegaly. Fatty infiltration of the liver with focal fatty sparing in the region of the gallbladder fossa. There are 2 tiny gallbladder polyps. Electronically Signed: Bashir Bustillos MD at 13:35 EDT ,
--- NOTE | 2022-10-18 10:11 | US_ITS ---
STUDY: ABDOMINAL ULTRASOUND - ELASTOGRAPHY REASON FOR VISIT: Male, 46 years old. Hepatomegaly and fatty infiltration of the liver. TECHNIQUE: Liver stiffness measurements were obtained on a [employer] RS 85 ultrasound machine using a CA 1-7 probe following the SRU guidelines. 3 measurements were obtained using a 2-D-SWE method. TheIQR/M was 27 % suggesting a quality data set. TECHNICAL QUALITY: Adequate. COMPARISON: Comparison is made with prior study dated October 18, 2021. FINDINGS: Liver: Hepatomegaly and fatty infiltration of the liver. Median liver stiffness measured 11.7 kPa. US/Elastography Parenchyma/Organ IMPRESSION: Liver stiffness measures 11.7 kPa compatible with F2-F3 (Mild to moderate liver fibrosis) Metavir score. Electronically Signed: Bashir Bustillos MD at 13:37 EDT ,
== END | disposition home or self-care (01) ==
PROVIDERS: PCP Nurse Practitioner Primary Care; Referring Provider Nurse Practitioner Adult Health; Visit Provider Nurse Practitioner Adult Health
DX: K76.0 Fatty (change of) liver, not elsewhere classified (principal)
CPT/HCPCS: 76705; 76981

== ENCOUNTER → 2022-11-08 | Outpatient (CLI) | payer OTHER, SELFPAY ==
[2022-11-08 13:49] LABS: Absolute Lymphocyte Count 1.98 X10^3/uL (0.83-4.51); Absolute Neutrophil Count 4.2 X10^3/uL (2.0-7.7); Basophil# 0.04 X10^3/uL; Basophil% 0.6 % (0-1); Eosinophil# 0.11 X10^3/uL; Eosinophils% 1.6 % (0-5); Hematocrit 43.5 % (40-54); Hemoglobin 14.5 g/dL (13.0-16.5); Lymphocyte # 1.98 X10^3/ul (0.83-4.51); Lymphocyte % 28.6 % (19-41); Mean Corp Hgb Conc 33.3 g/dL (32-36); Mean Corpuscular Hgb 30.7 pg (27.0-32.0); Mean Platelet Vol. 10.5 fl (6.2-12.0); Monocyte# 0.62 X10^3/uL; Monocyte% 8.9 % (0-10); NRBC Flagged by Analyzer 0 % (0-5); Neutrophil # 4.15 X10^3/uL (2.7-7.7); Neutrophil % 59.9 % (47-70); Platelet Count 183 K/mm3 (150-450); RBC Distribution Width CV 12.9 % (11.6-14.6); RBC Distribution Width SD 43.1 fl (35.1-43.9); Red Blood Count 4.73 M/mm3 (4.6-6.2); White Blood Count 6.9 K/mm3 (4.4-11.0)
[2022-11-08 14:16] LABS: ALB/GLOB Ratio 1.2 RATIO (0.9-2.4); AST(SGOT) 19 U/L (15-37); Alanine Aminotransfer ALT/SGPT 45 U/L (16-61); Albumin, Serum 4.3 g/dL (3.2-5.0); Alkaline Phosphatase 51 U/L (45-117); Anion Gap 4 (5-15); BUN 18 mg/dL (7-18); BUN/Creat Ratio 18.8 RATIO (10-20); Calcium,Total 9.7 mg/dL (8.5-10.1); Chloride 109 mmol/L (98-107); Creatinine, Serum 0.96 mg/dL (0.70-1.30); EST Glomerular Filtration Rate 89 mL/min (>60); Est Glom Filt Rate - Afr Amer 108 mL/min (>60); Globulin 3.5 g/dL (2.2-4.2); Glucose 115 mg/dL (74-106); Potassium 3.7 mmol/L (3.5-5.1); Protein, Total 7.8 g/dL (6.4-8.2); Sodium Level 138 mmol/L (136-145)
[2022-11-08 14:17] LABS: International Normalized Ratio 2.4; Prothrombin Time (Protime)PT. 25.9 SECONDS (11.7-14.9)
== END | disposition home or self-care (01) ==
PROVIDERS: PCP Nurse Practitioner Primary Care; Referring Provider Nurse Practitioner Adult Health; Visit Provider Nurse Practitioner Adult Health
DX: K76.0 Fatty (change of) liver, not elsewhere classified (principal)
CPT/HCPCS: 36415; 80053; 82140; 85025; 85610

== ENCOUNTER 2023-11-24 17:41 | Emergency (ER) | payer OTHER, SELFPAY ==
[2023-11-24] VITALS (15 sets, daily range): BP systolic 136–168; BP diastolic 76–118; PULSE 55–87; RESP 12–31; TEMP 36.7–37.1; O2SAT 92–99; BMI 48.4
--- NOTE | 2023-11-24 18:57 | EKG12_ITS ---
Test Reason : DYSRHYTHMIA Blood Pressure : / mmHG Vent. Rate : 055 BPM Atrial Rate : 055 BPM P-R Int : 130 ms QRS Dur : 092 ms QT Int : 430 ms P-R-T Axes : 051 037 034 degrees QTc Int : 411 ms Sinus bradycardia Otherwise normal ECG Confirmed by Guillermo Magana ([id number]), advertising editor GIULIANO SALINAS ([id number]) on 11/25/2023 10:03:00 AM Referred By: KATHY Confirmed By:Guillermo Magana
[2023-11-24] MEDS: 0.9% Normal Saline (1000mL) 1,000 ML 1000 ML IV (19:11)
--- NOTE | 2023-11-24 19:13 | EDS_ITS ---
HPI <KUMAR Sky - Last Filed: 11/24/23 22:17> History of Present Illness Chief Complaint: Syncope Narrative Narrative: Patient is a 47-year-old male with history of pulmonary embolisms, DVTs who is on Xarelto, WELLS, psoriatic arthritis who presents to the emergency department after a syncopal episode, altered mental status episode. Patient states over the last 2 to 3 days he has not been feeling well, he complains of more coughing, facial pressure, he states when he was going into work today, he felt a sudden sharp pain in his head, saw some bright lights, he then had a syncopal episode. Patient does not remember much about the episode however he does remember being in the squad. Patient denies any nausea or vomiting. Patient denies any chest pain however does state to have some sensation of numbness and tingling throughout his chest. Patient also complains of some tingling in his mid tongue as well. Patient is alert and oriented x 4 at this time, complains of pain to the right shoulder secondary to the fall. He does not believe he hit his head. PFSH <KUMAR Sky - Last Filed: 11/24/23 22:17> [facility] Medical History Allergies Arthritis Asthma Atrial fibrillation Back pain Back problem Cardiology follow-up encounter COPD (chronic obstructive pulmonary disease) CPAP (continuous positive airway pressure) dependence Diarrhea Diverticulosis DVT (deep venous thrombosis) DVT (deep venous thrombosis) Easy bruising Excessive bleeding Fibromyalgia Former smoker Gilbert syndrome Gout History of diverticulitis History of echocardiogram History of GI bleed History of IBS History of pain when walking History of steroid therapy History of stress test History of ulceration HTN (hypertension) Hypertriglyceridemia Hypoglycemia IBS (irritable bowel syndrome) Injury of back Irritable bowel syndrome with diarrhea Leg cramps Liver disease Lower GI bleed Muscle cramps Osteoarthritis Pulmonary embolism Restless legs Shortness of breath on exertion Sleep apnea Umbilical hernia Wears glasses Home Medications albuterol sulfate 90 mcg/actuation aerosol inhaler (ProAir HFA) 1 inh inhalation ONCE PRN COPD 04/20/21 [History Last Taken Unknown] cetirizine 10 mg capsule (Zyrtec) 10 mg PO BID ALLERGIES 04/20/21 [History Last Taken Unknown] fluticasone furoate 100 mcg-vilanterol 25 mcg/dose inhalation powder (Breo Ellipta) 1 inh inhalation DAILY 04/20/21 [History Last Taken Unknown] nebivolol 5 mg tablet (Bystolic) 5 mg PO BID 04/20/21 [History Last Taken 04/25/21 06:00] cholecalciferol (vitamin D3) 50 mcg (2,000 unit) capsule (Vitamin D3) 50 mcg PO DAILY 04/23/21 [History Last Taken Unknown] colchicine 0.6 mg capsule 0.6 mg PO DAILY 04/23/21 [History Last Taken Unknown] prednisone 20 mg tablet 10 mg PO PRN PRN GOUT 04/23/21 [History Last Taken Unknown] icosapent ethyl 1 gram capsule (Vascepa) 1 g PO BID 04/26/22 [History Last Taken Unknown] rivaroxaban 20 mg tablet (Xarelto) 20 mg PO DAILY 08/12/22 [History Last Taken Unknown] ursodiol 250 mg tablet 250 mg PO BID #60 tabs 11/15/22 [Rx Last Taken Unknown] spironolactone 25 mg tablet 25 mg PO DAILY 12/02/22 [History Last Taken Unknown] Allergy/AdvReac Type Severity Reaction Status Date / Time lisinopril Allergy Other Verified 11/24/23 17:43 melon Allergy Anaphylaxis Verified 11/24/23 17:43 peanut Allergy Anaphylaxis Verified 11/24/23 17:43 tree nut Allergy Anaphylaxis Verified 11/24/23 17:43 Sulfa (Sulfonamide AdvReac Nausea Verified 11/24/23 17:43 Antibiotics) Family History Father Diabetes Heart disease Mother Cancer Surgical History History of cardiac catheterization History of vasectomy Social History Smoking Status: Former smoker alcohol intake: never substance use type: does not use ROS <KUMAR Sky - Last Filed: 11/24/23 22:17> ROS ED ROS Narrative Constitutional: Negative for fever, chills, weight loss, weakness Eyes: Negative for vision loss, vision change, double vision ENT: Negative for any sore throat, ear pain, congestion Cardiovascular: Negative for any chest pain, tightness, palpitations. Numbness and tingling to the chest Respiratory: Negative for any sputum production, hemoptysis, dyspnea, dyspnea on exertion, orthopnea. Cough Gastrointestinal: Negative for any abdominal pain, nausea, vomiting, diarrhea, constipation, blood in stool, blood in vomit : Negative for any urinary frequency, dysuria, retention, blood in urine Muscle skeletal: Negative for any neck pain, back pain Neurological: Positive for any headache, syncope, dizziness Skin: Negative for any rashes, itching, abrasions, lacerations Psychiatric: Negative for any depression, anxiety, stress, suicidal ideation, homicidal ideation Hematologic: Negative for any excessive bruising, easy bleeding EXAM <KUMAR Sky - Last Filed: 11/24/23 22:17> Physical Exam Narrative Exam Narrative: Vital signs reviewed. Patient is alert and orient x 4. Patient is acting appropriate. HEET: Head normocephalic atraumatic, TMs clear bilaterally. Posterior pharynx is clear, moist mucous membranes. Nares clear bilaterally. Pupils are equal round reactive to light. No facial droop. Normal speech. Neck: Supple with no lymphadenopathy or tenderness. No signs of meningismus. Cardiac: Regular rate and rhythm no murmurs gallops or rubs, equal peripheral pulses bilaterally. Respiratory: Lungs clear to auscultation bilaterally. No chest tenderness. Abdomen: Soft, nontender, nondistended. No abdominal bruit or pulsatile masses. No hepatosplenomegaly Extremities: No peripheral edema, no signs of gross trauma or deformity. Active full range of motion of all extremities. Patient had some pain along the posterior shoulder. Neuro: Cranial nerves II through XII intact, no focal neurological deficits. NIH stroke scale 0 Skin: Clean dry and intact with no rash, purpura, petechiae, vesicles or pustules. Backs/flank: No CVA tenderness, no midline spinal tenderness, no deformity. Psych: Normal mood and affect. No SI, HI or acute psychosis. Const Vital Signs: 11/24/23 17:42 11/24/23 17:42 11/24/23 18:42 Temperature 98.7 F Temperature Source Temporal Pulse Rate 60 87 Respiratory Rate 18 18 Respiratory Effort Normal Non-Labored Respiratory Pattern Normal Blood Pressure 136/76 H 150/97 H Blood Pressure Mean 96 114 Pulse Ox 98 96 Oxygen Delivery Method Room Air Room Air 11/24/23 18:57 11/24/23 19:00 11/24/23 20:03 Temperature Temperature Source Pulse Rate 58 L 58 L Respiratory Rate 15 16 Respiratory Effort Respiratory Pattern Blood Pressure 168/96 H Blood Pressure Mean 120 Pulse Ox 98 97 98 Oxygen Delivery Method Room Air Room Air 11/24/23 20:15 11/24/23 20:30 11/24/23 20:45 Temperature Temperature Source Pulse Rate 56 L 56 L 63 Respiratory Rate 12 16 19 H Respiratory Effort Respiratory Pattern Blood Pressure 139/77 H 142/80 H 152/94 H Blood Pressure Mean 95 98 109 Pulse Ox 92 97 Oxygen Delivery Method 11/24/23 21:00 11/24/23 21:15 11/24/23 21:15 Temperature Temperature Source Pulse Rate 59 L 70 Respiratory Rate 24 H 31 H Respiratory Effort Respiratory Pattern Blood Pressure 140/112 H 166/118 H 166/118 H Blood Pressure Mean 122 129 129 Pulse Ox 98 Oxygen Delivery Method 11/24/23 21:30 11/24/23 21:45 11/24/23 22:00 Temperature Temperature Source Pulse Rate 56 L 61 59 L Respiratory Rate 13 14 14 Respiratory Effort Respiratory Pattern Blood Pressure 147/86 H 160/98 H 153/91 H Blood Pressure Mean 102 111 107 Pulse Ox 99 97 Oxygen Delivery Method 11/24/23 22:15 Temperature Temperature Source Pulse Rate 55 L Respiratory Rate 16 Respiratory Effort Respiratory Pattern Blood Pressure 141/94 H Blood Pressure Mean 106 Pulse Ox 97 Oxygen Delivery Method Positive well nourished and well developed General Appearance ED: well developed <Dr. Rayray Ragsdale, DO - Last Filed: 11/24/23 22:42> Physical Exam Const Vital Signs: 11/24/23 17:42 11/24/23 17:42 11/24/23 18:42 Temperature 98.7 F Temperature Source Temporal Pulse Rate 60 87 Respiratory Rate 18 18 Respiratory Effort Normal Non-Labored Respiratory Pattern Normal Blood Pressure 136/76 H 150/97 H Blood Pressure Mean 96 114 Pulse Ox 98 96 Oxygen Delivery Method Room Air Room Air 11/24/23 18:57 11/24/23 19:00 11/24/23 20:03 Temperature Temperature Source Pulse Rate 58 L 58 L Respiratory Rate 15 16 Respiratory Effort Respiratory Pattern Blood Pressure 168/96 H Blood Pressure Mean 120 Pulse Ox 98 97 98 Oxygen Delivery Method Room Air Room Air 11/24/23 20:15 11/24/23 20:30 11/24/23 20:45 Temperature Temperature Source Pulse Rate 56 L 56 L 63 Respiratory Rate 12 16 19 H Respiratory Effort Respiratory Pattern Blood Pressure 139/77 H 142/80 H 152/94 H Blood Pressure Mean 95 98 109 Pulse Ox 92 97 Oxygen Delivery Method 11/24/23 21:00 11/24/23 21:15 11/24/23 21:15 Temperature Temperature Source Pulse Rate 59 L 70 Respiratory Rate 24 H 31 H Respiratory Effort Respiratory Pattern Blood Pressure 140/112 H 166/118 H 166/118 H Blood Pressure Mean 122 129 129 Pulse Ox 98 Oxygen Delivery Method 11/24/23 21:30 11/24/23 21:45 11/24/23 22:00 Temperature Temperature Source Pulse Rate 56 L 61 59 L Respiratory Rate 13 14 14 Respiratory Effort Respiratory Pattern Blood Pressure 147/86 H 160/98 H 153/91 H Blood Pressure Mean 102 111 107 Pulse Ox 99 97 Oxygen Delivery Method 11/24/23 22:15 Temperature Temperature Source Pulse Rate 55 L Respiratory Rate 16 Respiratory Effort Respiratory Pattern Blood Pressure 141/94 H Blood Pressure Mean 106 Pulse Ox 97 Oxygen Delivery Method [place] <KUMAR Sky - Last Filed: 11/24/23 22:17> [facility] Lab Data Labs: Laboratory Results - last 24 hr 11/24/23 11/24/23 11/24/23 17:22 17:22 19:50 WBC Cancelled 8.3 Corrected WBC Cancelled RBC Cancelled 4.60 Hgb Cancelled 13.9 Hct Cancelled 41.0 MCV Cancelled 89.1 MCH Cancelled 30.2 MCHC Cancelled 33.9 RDW Std Deviation Cancelled 42.1 RDW Coeff of Solo Cancelled 12.9 Plt Count Cancelled 186 MPV Cancelled 10.2 Immature Gran % (Auto) Cancelled 1.000 H Neut % (Auto) Cancelled 57.8 Lymph % (Auto) Cancelled 29.0 Alexander % (Auto) Cancelled 9.5 Eos % (Auto) Cancelled 1.9 Baso % (Auto) Cancelled 0.8 Absolute Neuts (auto) Cancelled 4.8 Absolute Lymphs (auto) Cancelled 2.39 Total Counted Cancelled Neutrophils % (Manual) Cancelled Band Neutrophils % Cancelled Lymphocytes % (Manual) Cancelled Monocytes % (Manual) Cancelled Eosinophils % (Manual) Cancelled Basophils % (Manual) Cancelled Metamyelocytes % Cancelled Myelocytes % Cancelled Promyelocytes % Cancelled Blast Cells % Cancelled Plasma Cell % (Manual) Cancelled Other Cells % Cancelled Nucleated RBC % Cancelled 0 Nucleated RBCs/100 WBC Cancelled Differential Comment Cancelled Diff Path Review Cancelled Hypersegmented Neuts Cancelled Atypical Lymphocytes Cancelled Reactive Lymphocytes Cancelled Smudge Cells Cancelled Toxic Granulation Cancelled Toxic Vacuolation Cancelled Dohle Bodies Cancelled [place] Cancelled Platelet Estimate Cancelled Plt Morphology Comment Cancelled RBC Morphology Cancelled Cancelled Polychromasia Cancelled Hypochromasia Cancelled Basophilic Stippling Cancelled Anisocytosis Cancelled Microcytosis Cancelled Macrocytosis Cancelled Spherocytes Cancelled Sickle Cells Cancelled Target Cells Cancelled Tear Drop Cells Cancelled Ovalocytes Cancelled Stomatocytes Cancelled [place] Bodies Cancelled [place] Cells Cancelled Bite Cells Cancelled Crenated Cell Cancelled Acanthocytes (Spur) Cancelled Rouleaux Cancelled Schistocytes Cancelled PT 12.4 INR 0.9 Sodium 138 Potassium 3.6 Chloride 105 Carbon Dioxide 23.0 Anion Gap 10 BUN 23 H Creatinine 1.16 Estim Creat Clear Calc 119.16 Est GFR (MDRD) Af Amer 86 Est GFR (MDRD) Non-Af 71 BUN/Creatinine Ratio 19.8 Glucose 118 H Calcium 9.3 Total Bilirubin 2.50 H Direct Bilirubin 0.35 H AST 20 ALT 35 Alkaline Phosphatase 54 Troponin I High Sens 7 B-Natriuretic Peptide Cancelled 16.3 Total Protein 7.8 Albumin 4.3 Globulin 3.5 11/24/23 21:33 WBC Corrected WBC RBC Hgb Hct MCV MCH MCHC RDW Std Deviation RDW Coeff of Solo Plt Count MPV Immature Gran % (Auto) Neut % (Auto) Lymph % (Auto) Alexander % (Auto) Eos % (Auto) Baso % (Auto) Absolute Neuts (auto) Absolute Lymphs (auto) Total Counted Neutrophils % (Manual) Band Neutrophils % Lymphocytes % (Manual) Monocytes % (Manual) Eosinophils % (Manual) Basophils % (Manual) Metamyelocytes % Myelocytes % Promyelocytes % Blast Cells % Plasma Cell % (Manual) Other Cells % Nucleated RBC % Nucleated RBCs/100 WBC Differential Comment Diff Path Review Hypersegmented Neuts Atypical Lymphocytes Reactive Lymphocytes Smudge Cells Toxic Granulation Toxic Vacuolation Dohle Bodies [place] Platelet Estimate Plt Morphology Comment RBC Morphology Polychromasia Hypochromasia Basophilic Stippling Anisocytosis Microcytosis Macrocytosis Spherocytes Sickle Cells Target Cells Tear Drop Cells Ovalocytes Stomatocytes [place] Bodies [place] Cells Bite Cells Crenated Cell Acanthocytes (Spur) Rouleaux Schistocytes PT INR Sodium Potassium Chloride Carbon Dioxide Anion Gap BUN Creatinine Estim Creat Clear Calc Est GFR (MDRD) Af Amer Est GFR (MDRD) Non-Af BUN/Creatinine Ratio Glucose Calcium Total Bilirubin Direct Bilirubin AST ALT Alkaline Phosphatase Troponin I High Sens 13 B-Natriuretic Peptide Total Protein Albumin Globulin Radiography Diagnostic Testing: Clinical Impression(s) from Imaging Studies Brain CT 11/24/23 19:18 IMPRESSION: 1. Normal CT examination of brain. 2. No intracranial evidence of acute traumatic injury. 3. No intracranial mass, hemorrhage or acute territorial infarct. 4. No fractures noted. 5. No radiographically significant sinus disease.. Electronically Signed: Julio Cesar Madrigal MD at 20:25 EDT , Chest X-Ray 11/24/23 19:25 IMPRESSION: 1. Stable exam 2. Asymmetric interstitial prominence at the LEFT lung base partially obscuring LEFT heart border which appears stable, likely representing scar atelectasis in the lingula. 3. No evidence of acute cardiopulmonary process Electronically Signed: Julio Cesar Madrigal MD at 20:20 EDT , Shoulder X-Ray 11/24/23 19:25 IMPRESSION: 1. No fracture malalignment or focal bony or joint space abnormality involving the shoulder.. Electronically Signed: Julio Cesar Madrigal MD at 20:18 EDT , Chest CTA 11/24/23 21:18 IMPRESSION: undefined EKG EKG shows sinus bradycardia: Attestation: I personally reviewed and interpreted this EKG as follows: Interpretation: Sinus Rhythm and Sinus Bradycardia Comments: Sinus bradycardia, rate of 55 bpm, ID interval 130 ms, QRS duration 92 ms, no acute ST elevation, no acute infarct noted. Treatment and Re-Evaluation :: Differential diagnosis includes however is not limited to: Syncopal episode, ACS, RI, arrhythmia, migraine headache, viral syndrome, seizure Patient appears to be in no obvious respiratory distress vital signs are stable. Patient presents to the emergency department after a syncopal episode while going to work. The is concerned for a seizure-like/neurological event. Patient's physical examination yielded no red flag signs. Patient does have intermittent paresthesias throughout this entire body. Denies show scale 0. Patient will receive a full cardiac and neurological workup. 2 sets of troponins, chest x-ray, shoulder x-ray secondary to the injury, CT scan of the brain. All radiologic examinations were read, reviewed by the emergency department attending. From these reads, a plan of care will be put in place. Patient will also receive a chest x-ray they will be observed by the ER fred buenrostro, patient be given IV fluids, he will be reevaluated. Patient's CBC was unremarkable, patient's PT/INR was within normal limits, chemistries showed normal renal function and creatinine of 1. 1 6, glucose 118, total bilirubin of 2.5 with a direct bilirubin of 0.35, no transaminitis, patient's initial troponin was negative. Repeat will be drawn. Patient's chest x-ray, shoulder x-ray interpreted the ER physician were negative. CT scan of the brain showed a normal CT scan of the brain. No intracranial evidence of any acute traumatic injury. No intracranial mass, hemorrhage or acute territorial infarct. At this time, patient received a CTA of the chest. Patient CTA of the chest was negative. At this time, there is no evidence of any ACS, RI, brain mass, intracranial hemorrhage, shoulder fracture. At this time, patient will be discharged home, patient will need to follow-up outpatient. All questions were answered, patient will be have referral to cardiology as well as neurology. At this time, I do believe the patient safe for discharge. Spoke with the patient the patient's . Happy with the plan of care, stable for discharge. <Dr. Rayray Ragsdale, DO - Last Filed: 11/24/23 22:42> [facility] Lab Data Labs: Laboratory Results - last 24 hr 11/24/23 11/24/23 11/24/23 17:22 17:22 19:50 WBC Cancelled 8.3 Corrected WBC Cancelled RBC Cancelled 4.60 Hgb Cancelled 13.9 Hct Cancelled 41.0 MCV Cancelled 89.1 MCH Cancelled 30.2 MCHC Cancelled 33.9 RDW Std Deviation Cancelled 42.1 RDW Coeff of Solo Cancelled 12.9 Plt Count Cancelled 186 MPV Cancelled 10.2 Immature Gran % (Auto) Cancelled 1.000 H Neut % (Auto) Cancelled 57.8 Lymph % (Auto) Cancelled 29.0 Alexander % (Auto) Cancelled 9.5 Eos % (Auto) Cancelled 1.9 Baso % (Auto) Cancelled 0.8 Absolute Neuts (auto) Cancelled 4.8 Absolute Lymphs (auto) Cancelled 2.39 Total Counted Cancelled Neutrophils % (Manual) Cancelled Band Neutrophils % Cancelled Lymphocytes % (Manual) Cancelled Monocytes % (Manual) Cancelled Eosinophils % (Manual) Cancelled Basophils % (Manual) Cancelled Metamyelocytes % Cancelled Myelocytes % Cancelled Promyelocytes % Cancelled Blast Cells % Cancelled Plasma Cell % (Manual) Cancelled Other Cells % Cancelled Nucleated RBC % Cancelled 0 Nucleated RBCs/100 WBC Cancelled Differential Comment Cancelled Diff Path Review Cancelled Hypersegmented Neuts Cancelled Atypical Lymphocytes Cancelled Reactive Lymphocytes Cancelled Smudge Cells Cancelled Toxic Granulation Cancelled Toxic Vacuolation Cancelled Dohle Bodies Cancelled [place]s Cancelled Platelet Estimate Cancelled Plt Morphology Comment Cancelled RBC Morphology Cancelled Cancelled Polychromasia Cancelled Hypochromasia Cancelled Basophilic Stippling Cancelled Anisocytosis Cancelled Microcytosis Cancelled Macrocytosis Cancelled Spherocytes Cancelled Sickle Cells Cancelled Target Cells Cancelled Tear Drop Cells Cancelled Ovalocytes Cancelled Stomatocytes Cancelled [place] Bodies Cancelled [place] Cells Cancelled Bite Cells Cancelled Crenated Cell Cancelled Acanthocytes (Spur) Cancelled Rouleaux Cancelled Schistocytes Cancelled PT 12.4 INR 0.9 Sodium 138 Potassium 3.6 Chloride 105 Carbon Dioxide 23.0 Anion Gap 10 BUN 23 H Creatinine 1.16 Estim Creat Clear Calc 119.16 Est GFR (MDRD) Af Amer 86 Est GFR (MDRD) Non-Af 71 BUN/Creatinine Ratio 19.8 Glucose 118 H Calcium 9.3 Total Bilirubin 2.50 H Direct Bilirubin 0.35 H AST 20 ALT 35 Alkaline Phosphatase 54 Troponin I High Sens 7 B-Natriuretic Peptide Cancelled 16.3 Total Protein 7.8 Albumin 4.3 Globulin 3.5 11/24/23 21:33 WBC Corrected WBC RBC Hgb Hct MCV MCH MCHC RDW Std Deviation RDW Coeff of Solo Plt Count MPV Immature Gran % (Auto) Neut % (Auto) Lymph % (Auto) Alexander % (Auto) Eos % (Auto) Baso % (Auto) Absolute Neuts (auto) Absolute Lymphs (auto) Total Counted Neutrophils % (Manual) Band Neutrophils % Lymphocytes % (Manual) Monocytes % (Manual) Eosinophils % (Manual) Basophils % (Manual) Metamyelocytes % Myelocytes % Promyelocytes % Blast Cells % Plasma Cell % (Manual) Other Cells % Nucleated RBC % Nucleated RBCs/100 WBC Differential Comment Diff Path Review Hypersegmented Neuts Atypical Lymphocytes Reactive Lymphocytes Smudge Cells Toxic Granulation Toxic Vacuolation Dohle Bodies [place] Platelet Estimate Plt Morphology Comment RBC Morphology Polychromasia Hypochromasia Basophilic Stippling Anisocytosis Microcytosis Macrocytosis Spherocytes Sickle Cells Target Cells Tear Drop Cells Ovalocytes Stomatocytes [place] Bodies Benson Cells Bite Cells Crenated Cell Acanthocytes (Spur) Rouleaux Schistocytes PT INR Sodium Potassium Chloride Carbon Dioxide Anion Gap BUN Creatinine Estim Creat Clear Calc Est GFR (MDRD) Af Amer Est GFR (MDRD) Non-Af BUN/Creatinine Ratio Glucose Calcium Total Bilirubin Direct Bilirubin AST ALT Alkaline Phosphatase Troponin I High Sens 13 B-Natriuretic Peptide Total Protein Albumin Globulin Radiography Diagnostic Testing: Clinical Impression(s) from Imaging Studies Brain CT 11/24/23 19:18 IMPRESSION: 1. Normal CT examination of brain. 2. No intracranial evidence of acute traumatic injury. 3. No intracranial mass, hemorrhage or acute territorial infarct. 4. No fractures noted. 5. No radiographically significant sinus disease.. Electronically Signed: Julio Cesar Madrigal MD at 20:25 EDT , Chest X-Ray 11/24/23 19:25 IMPRESSION: 1. Stable exam 2. Asymmetric interstitial prominence at the LEFT lung base partially obscuring LEFT heart border which appears stable, likely representing scar atelectasis in the lingula. 3. No evidence of acute cardiopulmonary process Electronically Signed: Julio Cesar Madrigal MD at 20:20 EDT , Shoulder X-Ray 11/24/23 19:25 IMPRESSION: 1. No fracture malalignment or focal bony or joint space abnormality involving the shoulder.. Electronically Signed: Julio Cesar Madrigal MD at 20:18 EDT , Chest CTA 11/24/23 21:18 IMPRESSION: undefined Treatment and Re-Evaluation :: Differential diagnosis includes however is not limited to: Syncopal episode, ACS, RI, arrhythmia, migraine headache, viral syndrome, seizure Patient appears to be in no obvious respiratory distress vital signs are stable. Patient presents to the emergency department after a syncopal episode while going to work. The is concerned for a seizure-like/neurological event. Patient's physical examination yielded no red flag signs. Patient does have intermittent paresthesias throughout this entire body. Denies show scale 0. Patient will receive a full cardiac and neurological workup. 2 sets of troponins, chest x-ray, shoulder x-ray secondary to the injury, CT scan of the brain. All radiologic examinations were read, reviewed by the emergency department attending. From these reads, a plan of care will be put in place. Patient will also receive a chest x-ray they will be observed by the ER physician, patient be given IV fluids, he will be reevaluated. Patient's CBC was unremarkable, patient's PT/INR was within normal limits, chemistries showed normal renal function and creatinine of 1. 1 6, glucose 118, total bilirubin of 2.5 with a direct bilirubin of 0.35, no transaminitis, patient's initial troponin was negative. Repeat will be drawn. Patient's chest x-ray, shoulder x-ray interpreted the ER physician were negative. CT scan of the brain showed a normal CT scan of the brain. No intracranial evidence of any acute traumatic injury. No intracranial mass, hemorrhage or acute territorial infarct. At this time, patient received a CTA of the chest. Patient CTA of the chest was negative. At this time, there is no evidence of any ACS, RI, brain mass, intracranial hemorrhage, shoulder fracture. At this time, patient will be discharged home, patient will need to follow-up outpatient. All questions were answered, patient will be have referral to cardiology as well as neurology. At this time, I do believe the patient safe for discharge. Spoke with the patient the patient's . Happy with the plan of care, stable for discharge. ED attending note: I evaluated the patient in conjunction with the FARIBA. I agree with his/her statements and above findings. I have personally performed a face to face assessment of the patient and have reviewed the FARIBA Note. I performed a substantive portion of the visit including all aspects of the following. I personally saw the patient performed chart review, physical exam, reviewed labs, imaging (if obtained), and formulated a treatment and management plan. X-rays of the patient's chest, shoulder read and reviewed myself and showed no obvious abnormalities specifically no traumatic abnormalities or cardiopulmonary normalities. This note was generated with [employer] dictation software. It may contain incorrect words, spelling, and punctuation that were not noted in review of the chart prior to signing. Discharge Plan Triage Chief Complaint: Syncope ED Midlevel Provider: Jonel Ruiz ED Provider: Rayray Ragsdale Dx/Rx/DC Orders Clinical Impression: Paresthesias, Syncope, Shoulder strain, Chest pain Instructions: Dizziness Fainting Causes, ED Chest Pain, Noncardiac, ED Muscle Strain, Extremity, ED Paraesthesias Prescriptions: No Action nebivolol [Bystolic] 5 mg tablet 5 mg PO BID Zyrtec 10 mg capsule 10 mg PO BID Breo Ellipta 100-25 mcg/dose blister with device 1 inh inhalation DAILY albuterol sulfate [ProAir HFA] 90 mcg/actuation HFA aerosol inhaler 1 inh inhalation ONCE PRN (Reason: COPD) icosapent ethyl [Vascepa] 1 gram capsule 1 g PO BID Xarelto 20 mg tablet 20 mg PO DAILY Rx Instructions: must administer with evening meal spironolactone 25 mg tablet 25 mg PO DAILY cholecalciferol (vitamin D3) [Vitamin D3] 50 mcg (2,000 unit) Capsule 50 mcg PO DAILY colchicine 0.6 mg capsule 0.6 mg PO DAILY Patient Comments: TAKE 2 CAPS AND THEN 1 CAP ONE HOUR LATER FOR ACUTE GOUT FLARE/PAIN prednisone 20 MG tablet 10 mg PO PRN PRN (Reason: GOUT) Patient Comments: TAPERED DOSE FOR GOUT FLAIR UPS PRN ursodiol 250 mg tablet 250 mg PO BID Qty: 60 2RF Stand Alone Forms: ED Work / School Excuse Primary Care Provider: Kash Livingston NP Referrals: Marco A Calixto MD [Med Staff - Active Staff] - Martínez Thomas MD [Non-Staff] - Kash Livingston MANAGER MEDICARE MARKETING, MANAGER MEDICARE MARKETING-C [Primary Care Provider] - Activity Restrictions/Additional Instructions: Please follow-up outpatient with your primary care provider, I also added cardiology as well as neurology. Please have follow-up outpatient. Return for any worsening symptoms. Disposition Disposition: Home, Self Care
--- NOTE | 2023-11-24 19:18 | CT_ITS ---
INDICATION: fall EXAMINATION: CT BRAIN - CT Head or Brain W/O Contrast Injection TECHNIQUE: Multiple axial images were obtained of the head without intravenous contrast. A radiation dose optimization technique was used for this scan. IV Contrast dosage and agent: None. RADIATION DOSAGE (If Supplied By Facility): CTDIvol = ( 44.99 ) mGy, DLP = ( 863.60 ) mGycm COMPARISON: No relevant prior examinations for comparison FINDINGS: HEMISPHERES: 1. The cerebral parenchyma, ventricular system, subarachnoid spaces have normal configuration and density. There is a normal gyral pattern. There is normal vick/white differentiation. No midline shift.. 2. The hemispheric white matter has normal appearance. 3. No intraparenchymal mass, hemorrhage, or acute territorial infarct. CEREBELLUM - BRAINSTEM: The cerebellum, brainstem, basilar and suprasellar cisterns have normal appearance. No Chiari malformation. PITUITARY: Infundibulum and pituitary have normal configuration. Midline structures appear normal. CSF SPACES: Appropriate for age. No hydrocephalus. Basal cisterns are patent. VESSELS: 1. No significant vascular calcifications in the cavernous carotid vessels. 2. No hyperdense vascular signs noted.. ORBITS AND PARANASAL SINUSES: 1. Normal appearance of the bony orbits. Normal appearance of the globes and retrobulbar soft tissues.. 2. Paranasal sinuses are clear. BONY ELEMENTS: Bony elements of the cranial vault, facial skeleton and skull base have normal appearance. SCALP AND SOFT TISSUES: Normal appearance of the soft tissues of the scalp and the visualized face OTHER: None ASPECTS Score for Acute Strokes: 10 CT/Brain/Head without Contrast IMPRESSION: 1. Normal CT examination of brain. 2. No intracranial evidence of acute traumatic injury. 3. No intracranial mass, hemorrhage or acute territorial infarct. 4. No fractures noted. 5. No radiographically significant sinus disease.. Electronically Signed: Julio Cesar Madrigal MD at 20:25 EDT ,
[2023-11-24 19:23] LABS: International Normalized Ratio 0.9; Prothrombin Time (Protime)PT. 12.4 SECONDS (11.7-14.9)
--- NOTE | 2023-11-24 19:25 | RAD_ITS ---
INDICATION: fall EXAMINATION/TECHNIQUE: X-RAY - RIGHT XR Shoulder Min 2 Views COMPARISON: No previous relevant examinations for comparison. FINDINGS: SOFT TISSUES: No soft tissue swelling or gas. No radiopaque foreign body. BONES/JOINTS: 1. No acute fracture or subluxation.. Normal alignment. Preservation of the joint space.. No sclerotic or destructive changes observed. 2. There is normal glenohumeral motion. There is normal alignment of the acromioclavicular joint. 3. The clavicle, acromion, scapula and RIGHT rib cage have normal appearance. RAD/Shoulder min 2 Views IMPRESSION: 1. No fracture malalignment or focal bony or joint space abnormality involving the shoulder.. Electronically Signed: Julio Cesar Madrigal MD at 20:18 EDT ,
--- NOTE | 2023-11-24 19:25 | RAD_ITS ---
INDICATION: chest pain EXAMINATION/TECHNIQUE: X-RAY - XR Chest 1 View COMPARISON: 07/27/2021 FINDINGS: LIFE-SUPPORT AND LINES: 1. None HEART AND VESSELS: The cardiac silhouette, pulmonary vasculature have normal appearance. No evidence of congestive failure. LUNGS AND PLEURAL SPACES: Subtle area of asymmetric markings at the LEFT lung base appears stable. Remaining lung zones are clear. No consolidation, no effusion. No pulmonary mass is noted. MEDIASTINUM AND HILAR REGIONS: No masses adenopathy noted. No areas of calcification. Visualized upper airway is normal in position. BONY ELEMENTS: No acute bony changes noted. RAD/Chest 1 View (Portable) IMPRESSION: 1. Stable exam 2. Asymmetric interstitial prominence at the LEFT lung base partially obscuring LEFT heart border which appears stable, likely representing scar atelectasis in the lingula. 3. No evidence of acute cardiopulmonary process Electronically Signed: Julio Cesar Madrigal MD at 20:20 EDT ,
[2023-11-24 19:35] LABS: Anion Gap 10 (5-15); BUN 23 mg/dL (7-18); BUN/Creat Ratio 19.8 RATIO (10-20); Calcium,Total 9.3 mg/dL (8.5-10.1); Chloride 105 mmol/L (98-107); Creatinine, Serum 1.16 mg/dL (0.70-1.30); EST Glomerular Filtration Rate 71 mL/min (>60); Est Glom Filt Rate - Afr Amer 86 mL/min (>60); Estimated Creatinine Clearance 119.16 ml/min; Glucose 118 mg/dL (74-106); Potassium 3.6 mmol/L (3.5-5.1); Sodium Level 138 mmol/L (136-145); Troponin-I HS (w/2H Reflex) 7 pg/mL (3.0-78.0)
[2023-11-24 19:36] LABS: AST(SGOT) 20 U/L (15-37); Alanine Aminotransfer ALT/SGPT 35 U/L (16-61); Albumin, Serum 4.3 g/dL (3.2-5.0); Alkaline Phosphatase 54 U/L (45-117); Bilirubin, Direct 0.35 mg/dL (0.00-0.30); Globulin 3.5 g/dL (2.2-4.2); Protein, Total 7.8 g/dL (6.4-8.2)
[2023-11-24 19:58] LABS: Absolute Lymphocyte Count 2.39 X10^3/uL (0.83-4.51); Absolute Neutrophil Count 4.8 X10^3/uL (2.0-7.7); Basophil# 0.07 X10^3/uL; Basophil% 0.8 % (0-1); Eosinophil# 0.16 X10^3/uL; Eosinophils% 1.9 % (0-5); Hemoglobin 13.9 g/dL (13.0-16.5); Lymphocyte # 2.39 X10^3/ul (0.83-4.51); Mean Corp Hgb Conc 33.9 g/dL (32-36); Mean Corpuscular Hgb 30.2 pg (27.0-32.0); Mean Corpuscular Volume 89.1 fL (80-94); Mean Platelet Vol. 10.2 fl (6.2-12.0); Monocyte# 0.78 X10^3/uL; Monocyte% 9.5 % (0-10); NRBC Flagged by Analyzer 0 % (0-5); Neutrophil # 4.77 X10^3/uL (2.7-7.7); Neutrophil % 57.8 % (47-70); Platelet Count 186 K/mm3 (150-450); RBC Distribution Width CV 12.9 % (11.6-14.6); RBC Distribution Width SD 42.1 fl (35.1-43.9); White Blood Count 8.3 K/mm3 (4.4-11.0)
[2023-11-24 20:13] LABS: BNP,B-Type NATRIURETIC PEPTIDE 16.3 pg/mL (0-100)
[2023-11-24 21:13] LABS: Reflex Troponin-HS? (from REC) Y
--- NOTE | 2023-11-24 21:18 | CT_ITS ---
STUDY: CTA CHEST REASON FOR EXAM: Male, 47 years old. syncope hx of PE RADIATION DOSAGE (If Supplied By Facility): CTDIvol = ( 12.66 ) mGy, DLP = ( 584.97 ) mGycm TECHNIQUE: The examination was performed with the intravenous administration of IV 100mL Isovue-370. Post-processing of the angiographic images was performed, with multiplanar reformation and 3D reconstruction. Individualized dose optimization techniques were used for this CT. COMPARISON: None. FINDINGS: Tubes and lines: 1. No life-support noted. CTA: PULMONARY ARTERIES: There is normal configuration and contrast opacification of pulmonary outflow tract, main pulmonary arteries, segmental and intersegmental pulmonary arteries bilaterally without evidence of intraluminal filling defects. AORTIC ARCH: The aortic arch and descending aorta have normal configuration. No evidence of dissection or aneurysmal dilatation. HEART: Cardiac contour is normal. No evidence pericardial effusion. CT CHEST: LUNGS: [No focal infiltrate or consolidation. Minimal pleural thickening.. No mass. No consolidation. PLEURAL SPACES: Unremarkable, no effusion or pneumothorax.. MEDIASTINUM AND LYMPH NODES: Unremarkable. No significant adenopathy. BONES: Diffuse thoracic spondylosis, marginal osteophyte formation is noted. ABDOMEN: Within normal limits. Other: None IMPRESSIONS: 1. No CTA evidence of pulmonary embolism. 2. No CTA evidence of aortic aneurysm or dissection 3. Normal CT appearance of the heart and pericardium. 4. No focal infiltrate consolidation or effusion noted. 5. Minimal pleural thickening without evidence archana pleural effusion. Electronically Signed: Julio Cesar Madrigal MD at 22:15 EDT , CT/CTA Chest W/WO Contrast IMPRESSION: undefined
[2023-11-24 22:06] LABS: Troponin-I HS 13 pg/mL (3.0-78.0)
== END 2023-11-24 23:03 | disposition home or self-care (01) ==
PROVIDERS: Nurse Practitioner; Emergency Provider Emergency Medicine; PCP Nurse Practitioner Primary Care; Visit Provider Emergency Medicine
DX: R55 Syncope and collapse (principal); J44.9 Chronic obstructive pulmonary disease, unspecified; I48.91 Unspecified atrial fibrillation; W19.XXXA Unspecified fall, initial encounter; R20.2 Paresthesia of skin; Z87.891 Personal history of nicotine dependence; R07.9 Chest pain, unspecified; S46.911A Strain of unspecified muscle, fascia and tendon at shoulder and upper arm level, right arm, initial encounter; Z79.01 Long term (current) use of anticoagulants; Z86.711 Personal history of pulmonary embolism; Z86.718 Personal history of other venous thrombosis and embolism; K75.81 Nonalcoholic steatohepatitis (NASH); I10 Essential (primary) hypertension
CPT/HCPCS: 70450; 71045; 71275; 73030; 80048; 80076; 83880; 84484; 85025; 85610; 87631; 93005; 96360; 96361; 99285; J7030; Q9967; A4216

== ENCOUNTER → 2024-09-06 | Outpatient (CLI) | payer OTHER, SELFPAY ==
[2024-09-06 11:48] LABS: Absolute Lymphocyte Count 2.09 X10^3/uL (0.83-4.51); Absolute Neutrophil Count 3.1 X10^3/uL (2.0-7.7); Basophil# 0.03 X10^3/uL; Basophil% 0.5 % (0-1); Eosinophil# 0.23 X10^3/uL; Eosinophils% 3.9 % (0-5); Hematocrit 41.2 % (40-54); Hemoglobin 13.7 g/dL (13.0-16.5); Lymphocyte # 2.09 X10^3/ul (0.83-4.51); Lymphocyte % 35.2 % (19-41); Mean Corp Hgb Conc 33.3 g/dL (32-36); Mean Corpuscular Volume 90.4 fL (80-94); Mean Platelet Vol. 10.3 fl (6.2-12.0); Monocyte# 0.45 X10^3/uL; Monocyte% 7.6 % (0-10); NRBC Flagged by Analyzer 0 % (0-5); Neutrophil % 52.1 % (47-70); Platelet Count 173 K/mm3 (150-450); RBC Distribution Width SD 43.1 fl (35.1-43.9); Red Blood Count 4.56 M/mm3 (4.6-6.2); White Blood Count 5.9 K/mm3 (4.4-11.0)
[2024-09-06 12:30] LABS: ALB/GLOB Ratio 1.2 RATIO (0.9-2.4); AST(SGOT) 16 U/L (15-37); Alanine Aminotransfer ALT/SGPT 32 U/L (16-61); Alkaline Phosphatase 52 U/L (45-117); Anion Gap 6 (5-15); BUN 9 mg/dL (7-18); BUN/Creat Ratio 10.6 RATIO (10-20); Calcium,Total 9.4 mg/dL (8.5-10.1); Chloride 108 mmol/L (98-107); Creatinine, Serum 0.85 mg/dL (0.70-1.30); EST Glomerular Filtration Rate 101 mL/min (>60); Est Glom Filt Rate - Afr Amer 123 mL/min (>60); Globulin 3.4 g/dL (2.2-4.2); Glucose 87 mg/dL (74-106); Potassium 4.3 mmol/L (3.5-5.1); Protein, Total 7.4 g/dL (6.4-8.2); Sodium Level 139 mmol/L (136-145)
== END | disposition home or self-care (01) ==
LOC: LAB 11:23
PROVIDERS: PCP Nurse Practitioner Primary Care; Referring Provider Nurse Practitioner Acute Care; Visit Provider Nurse Practitioner Acute Care
DX: R10.32 Left lower quadrant pain (principal); R61 Generalized hyperhidrosis; R11.0 Nausea; R53.83 Other fatigue; R19.4 Change in bowel habit; R10.2 Pelvic and perineal pain; Z86.0100 Personal history of colon polyps, unspecified
CPT/HCPCS: 36415; 80053; 85025

== ENCOUNTER → 2024-10-01 | Outpatient (CLI) | payer OTHER, SELFPAY ==
--- NOTE | 2024-10-01 14:54 | CT_ITS ---
PROCEDURE: ABDOMEN/PELVIS WITH CONTRAST (procedure code CTABDPELW), 10/01/2024 REASON FOR EXAM: LLQ PAIN, NAUSEA, PELVIC PAIN TECHNIQUE: CT abdomen and pelvis was performed with IV contrast. Multiplanar reformats were generated. Oral contrast also administered. IV CONTRAST: 100 mL Isovue-300 COMPARISON: No prior CT FINDINGS: Lung bases: Minimal atelectasis/scarring. Coronary atherosclerosis and/or stents.. Liver: Unremarkable. Spleen: Splenomegaly, 14.8 cm coronal. Gallbladder: Unremarkable. Pancreas: Unremarkable. Adrenals: Unremarkable. Kidneys: Unremarkable. Bowel: No bowel dilatation or convincing inflammation. Colonic stool burden is very low. Mild apparent diffuse pancolonic and rectosigmoid wall thickening is favored related to underdistention in the absence of adjacent inflammation. Intramural fat deposition within the burroughs of the colon a nonspecific finding which can be seen in obesity or chronic inflammation. Normal caliber appendix. Lymph nodes: Unremarkable. Vasculature: Trace to mild atherosclerosis.. Peritoneum: Unremarkable. Bladder: Unremarkable. Reproductive Organs: Unremarkable. Body Wall: Unremarkable. Bones: Multilevel spondylosis.. CT/Abdomen/Pelvis WITH Contrast IMPRESSION: 1. No acute findings. Mild apparent diffuse pancolonic and rectosigmoid wall t hickening is favored related to underdistention in the absence of convincing adjacent inflammation. 2. Mild splenomegaly. 3. Additional description as above. Reading Location: [id number]
== END | disposition home or self-care (01) ==
LOC: CT 14:37
PROVIDERS: PCP Nurse Practitioner Primary Care; Referring Provider Nurse Practitioner Acute Care; Visit Provider Nurse Practitioner Acute Care
DX: R10.32 Left lower quadrant pain (principal); R61 Generalized hyperhidrosis; R11.0 Nausea; R53.83 Other fatigue; R19.4 Change in bowel habit; R10.2 Pelvic and perineal pain; Z86.0100 Personal history of colon polyps, unspecified
CPT/HCPCS: 74177; Q9967

== ENCOUNTER 2024-11-02 12:55 | Day surgery (SDC) | payer OTHER, SELFPAY ==
--- NOTE | 2024-10-28 18:08 | PAT.ANESEVAL ---
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 When Was Last Pacemaker Check QUESTION #4 FULL TEXT: You/Your Family Experience fever (hyperthermia) with Anesthesia Last Oral Intake Last Oral intake: Last Oral Intake NPO since Meds taken in AM with sips of water? Meds patient instructed to take am of surgery PONV PONV - plisse machine operator helper: PONV - plisse machine operator helper Female No 10/28/24 12:36 HX of Motion Sickness No 10/28/24 12:36 HX of N/V After Surgery No 10/28/24 12:36 Non-Smoker Yes 10/28/24 12:36 Duration of Surgery greater No 10/28/24 12:36 than 60 minutes Number of Risk Factors 1 10/28/24 12:36 PONV Score Low Risk 10/28/24 12:36 Height & Weight Height & Weight: Anesthesia: Height & Weight Height 5 ft 11 in 09/06/24 10:51 Respiratory Assessment Respiratory Assessment - plisse machine operator helper: Respiratory Tract Infection Hx - plisse machine operator helper Hx Respiratory Tract Infection No 10/28/24 12:36 STOP Sleep Apnea STOP Sleep Apnea - plisse machine operator helper: STOP Sleep Apnea - plisse machine operator helper Hx Hypertension Yes: CONTROLLED WITH MED 10/28/24 12:36 Hx Sleep Apnea Yes 10/28/24 12:36 CPAP Yes 10/28/24 12:36 BIPAP No 10/28/24 12:36 Do you snore loudly (louder than talking or can be heard Do you often feel tired/ fatigued/ sleepy during daytime? Has anyone observed you stop breathing during sleep? STOP Results Positive 10/28/24 12:36 QUESTION #5 FULL TEXT : Do you snore loudly (louder than talking or can be heard through closed doors)? 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 Specify any problems Hx of Preganancy in last 3 N/A 10/28/24 12:36 Months Nurse Filling Out Transfusion DSCHRIBER 10/28/24 12:36 & Questions: Date: 10/28/24 10/28/24 12:36 Time: 12:37 10/28/24 12:36 Patient unable to answer at this time (ie. confused, unrespo /Reproduction History /Reproductive History - plisse machine operator helper: /Reproductive Hx- plisse machine operator helper Hx Now No 10/28/24 12:36 Gestational Age (in weeks): EDC: Hx Hx Para Hx Section SAB No 10/28/24 12:36 PFSH Medical History (Updated 10/28/24 @ 12:45 by Carine Chowdary) History of edema History of atrial fibrillation Gilbert syndrome Wears glasses History of steroid therapy DVT (deep venous thrombosis) Restless legs Back pain History of ulceration History of GI bleed History of diverticulitis History of IBS Former smoker CPAP (continuous positive airway pressure) dependence Shortness of breath on exertion Leg cramps History of pain when walking History of echocardiogram History of stress test Cardiology follow-up encounter Osteoarthritis Liver disease Hypertriglyceridemia HTN (hypertension) Gout COPD (chronic obstructive pulmonary disease) Pulmonary embolism Home Medications ?Medication ?Instructions ?Recorded ?Last Taken ?Type albuterol sulfate 90 mcg/actuation 1 inh inhalation ONCE PRN COPD 04/20/21 Unknown History aerosol inhaler (ProAir HFA) cholecalciferol (vitamin D3) 50 50 mcg PO DAILY 04/23/21 Unknown History mcg (2,000 unit) capsule (Vitamin D3) colchicine 0.6 mg capsule 0.6 mg PO DAILY 04/23/21 Unknown History prednisone 20 mg tablet 10 mg PO PRN PRN GOUT 04/23/21 Unknown History icosapent ethyl 1 gram capsule 1 g PO BID 04/26/22 Unknown History (Vascepa) rivaroxaban 20 mg tablet (Xarelto) 20 mg PO DAILY 08/12/22 Unknown History spironolactone 25 mg tablet 25 mg PO DAILY 12/02/22 Unknown History carvedilol 6.25 mg tablet 6.25 mg PO BID 09/06/24 Unknown History cetirizine 10 mg capsule (Zyrtec) 10 mg PO QDAY ALLERGIES 09/06/24 Unknown History fluticasone fur. 100 mcg-umeclid 1 inh inhalation QDAY 09/06/24 Unknown History 62.5 mcg-vilant 25 mcg inhalat.powder (Trelegy Ellipta) Allergy/AdvReac Type Severity Reaction Status Date / Time lisinopril Allergy Other Verified 10/28/24 12:34 melon Allergy Anaphylaxis Verified 10/28/24 12:34 peanut Allergy Anaphylaxis Verified 10/28/24 12:34 tree nut Allergy Anaphylaxis Verified 10/28/24 12:34 Sulfa (Sulfonamide AdvReac Nausea Verified 10/28/24 12:34 Antibiotics) Family History Father Diabetes Heart disease Mother Cancer Surgical History (Updated 10/28/24 @ 12:45 by Carine Chowdary) Hx of umbilical hernia repair History of cardiac catheterization History of vasectomy Social History Smoking Status: Former smoker alcohol intake: never substance use type: does not use Audit: Pertinent Findings Pertinent Findings EKG Perinent findings: November 24, 2023. Sinus bradycardia at 55 bpm. Stress test pertinent findings: February 2020. No ischemia. Echo (EF%) pertinent findings: 2024. Normal ejection fraction of 55 to 60%. Stable valve function. RVSP 23 mmHg. Heart catheterization pertinent findings: September 21, 2020. Minimal to mild luminary irregularities in the LAD. Consult pertinent findings: September 20, 2024. 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 1. Syncope-likely neurologic. Event monitor showed sinus rhythm, 1% PVC burden and a single run of SVT. Echo was stable with a normal ejection fraction. 2. Obstructive sleep apnea. Uses AutoPap. Following with pulmonary. 3. History of pulmonary embolism. Small PE noticed in right middle lobe in February 01, 2020. Resolved by February 29, 2020. Patient is continue on Xarelto. 4. V. tach-20 beat run in February 2020. Stress test done March 21, 2020 showed no ischemia. He underwent cardiac catheterization which showed minimal to mild luminal irregularities in the LAD. 5. Paroxysmal atrial fibrillation?stable maintaining sinus rhythm. Last 2 event monitors did not identify any A-fib. Patient is to continue Xarelto. 6. Hypertension?controlled. Continue carvedilol. Additional pertinent findings: 2024. Event monitor showed 1% PVC burden. 1 run of SVT. Recommendation Anesthesia Recommendation Anesthesia recommendation: OPTIMIZED for anesthesia
[2024-11-02] VITALS (7 sets, daily range): BP systolic 99–135; BP diastolic 60–87; PULSE 61–99; RESP 16–18; TEMP 36.1–36.9; O2SAT 94–98; BMI 47.0
--- NOTE | 2024-11-02 13:49 | PCM.PRE.AN2 ---
ASA Classification* ASA Classification ASA Classification: 3 Assessment & Plan Anesthesia* Anesthesia Assessment Anesthesia Assessment: Discussed sedation and/or anesthesia options, risks, benefits, and alternatives with patient/parents/legal guardian/POA. Questions invited. The patient/parents/legal guardian/POA seems to understand and agrees to proceed with anesthesia plan. Reviewed the physical assessment, medical history, allergy history and patient home medications list prior to surgery/procedure/anesthetic and documented any changes. Performed airway and anesthesia risk assessments. Anesthesia Type Anesthesia Type: MAC History Source History Obtained from:: Patient and Chart Anesthesia Focused Assessment* Temperature: 98.5 F Pulse Rate: 99 Blood Pressure: 135/87 Respiratory Rate: 16 Pulse Ox: 96 Oxygen Delivery Method: Room Air Airway Assessment Mouth opens: >3 cm Mallampati Score: I Teeth Condition: Caps/Crowns (Patient has caps #8 and #9.) and Missing (Patient has a couple missing teeth upper molars.) Neck Range of motion (ROM): Limited ROM (Slight decrease in extension) Focused Labs Anesthesia Preop lab: CBC WBC 5.9 K/mm3 (4.4-11.0) 09/06/24 11:24 09/06/24 RBC 4.56 M/mm3 (4.6-6.2) L 09/06/24 11:24 09/06/24 Hgb 13.7 g/dL (13.0-16.5) 09/06/24 11:24 09/06/24 Hct 41.2 % (40-54) 09/06/24 11:24 09/06/24 Plt Count 173 K/mm3 (150-450) 09/06/24 11:24 09/06/24 CHEMISTRY Potassium 4.3 mmol/L (3.5-5.1) 09/06/24 11:24 09/06/24 Sodium 139 mmol/L (136-145) 09/06/24 11:24 09/06/24 BUN 9 mg/dL (7-18) 09/06/24 11:24 09/06/24 Creatinine 0.85 mg/dL (0.70-1.30) 09/06/24 11:24 09/06/24 Glucose 87 mg/dL (74-106) 09/06/24 11:24 09/06/24 COAG PT 12.4 SECONDS (11.7-14.9) 11/24/23 17:22 11/24/23 Pre-Assessment Diagnosis/Proposed Procedure Planned Operative Procedure(s): EGD/CSCOPE Anesthesia History 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 When Was Last Pacemaker Check QUESTION #4 FULL TEXT: You/Your Family Experience fever (hyperthermia) with Anesthesia Last Oral Intake Last Oral intake: Last Oral Intake NPO since 23:00 11/02/24 13:18 Meds taken in AM with sips of Yes 11/02/24 13:18 water? Meds patient instructed to coreg 11/02/24 13:18 take am of surgery Any additional information?: Yes Meds taken in AM with sips of water?: Yes PONV PONV - process safety manager: PONV - process safety manager Female No 10/28/24 12:36 HX of Motion Sickness No 10/28/24 12:36 HX of N/V After Surgery No 10/28/24 12:36 Non-Smoker Yes 10/28/24 12:36 Duration of Surgery greater No 10/28/24 12:36 than 60 minutes Number of Risk Factors 1 10/28/24 12:36 PONV Score Low Risk 10/28/24 12:36 Height & Weight Height & Weight: Anesthesia: Height & Weight Height 5 ft 11 in 11/02/24 13:18 Weight: 152.8 kg 11/02/24 13:18 Body Mass Index (BMI) 47.0 11/02/24 13:18 Respiratory Assessment Respiratory Assessment - process safety manager: Respiratory Tract Infection Hx - process safety manager Hx Respiratory Tract Infection No 10/28/24 12:36 STOP Sleep Apnea STOP Sleep Apnea - process safety manager: STOP Sleep Apnea - process safety manager Hx Hypertension Yes: CONTROLLED WITH MED 10/28/24 12:36 Hx Sleep Apnea Yes 10/28/24 12:36 CPAP Yes 10/28/24 12:36 BIPAP No 10/28/24 12:36 Do you snore loudly (louder than talking or can be heard Do you often feel tired/ fatigued/ sleepy during daytime? Has anyone observed you stop breathing during sleep? STOP Results Positive 10/28/24 12:36 QUESTION #5 FULL TEXT : Do you snore loudly (louder than talking or can be heard through closed doors)? 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 Specify any problems Hx of Preganancy in last 3 N/A 10/28/24 12:36 Months Nurse Filling Out Transfusion DSCHRIBER 10/28/24 12:36 & Questions: Date: 10/28/24 10/28/24 12:36 Time: 12:37 10/28/24 12:36 Patient unable to answer at this time (ie. confused, unrespo /Reproduction History /Reproductive History - process safety manager: /Reproductive Hx- process safety manager Hx Now No 10/28/24 12:36 Gestational Age (in weeks): EDC: Hx Hx Para Hx Section SAB No 10/28/24 12:36 PFSH Medical History (Updated 10/29/24 @ 09:[address] Talon Sotelo MD) History of edema History of atrial fibrillation Gilbert syndrome Wears glasses History of steroid therapy DVT (deep venous thrombosis) Restless legs Back pain History of ulceration History of GI bleed History of diverticulitis History of IBS Former smoker CPAP (continuous positive airway pressure) dependence Shortness of breath on exertion Leg cramps History of pain when walking History of echocardiogram History of stress test Cardiology follow-up encounter Osteoarthritis Liver disease Hypertriglyceridemia HTN (hypertension) Gout COPD (chronic obstructive pulmonary disease) Pulmonary embolism Home Medications ?Medication ?Instructions ?Recorded ?Last Taken ?Type albuterol sulfate 90 mcg/actuation 1 inh inhalation ONCE PRN COPD 04/20/21 Unknown History aerosol inhaler (ProAir HFA) cholecalciferol (vitamin D3) 50 50 mcg PO DAILY 04/23/21 Unknown History mcg (2,000 unit) capsule (Vitamin D3) colchicine 0.6 mg capsule 0.6 mg PO DAILY 04/23/21 Unknown History prednisone 20 mg tablet 10 mg PO PRN PRN GOUT 04/23/21 Unknown History icosapent ethyl 1 gram capsule 1 g PO BID 04/26/22 Unknown History (Vascepa) rivaroxaban 20 mg tablet (Xarelto) 20 mg PO DAILY 08/12/22 10/29/24 History spironolactone 25 mg tablet 25 mg PO DAILY 12/02/22 Unknown History carvedilol 6.25 mg tablet 6.25 mg PO BID 09/06/24 11/02/24 06:00 History cetirizine 10 mg capsule (Zyrtec) 10 mg PO QDAY ALLERGIES 09/06/24 Unknown History fluticasone fur. 100 mcg-umeclid 1 inh inhalation QDAY 09/06/24 Unknown History 62.5 mcg-vilant 25 mcg inhalat.powder (Trelegy Ellipta) Allergy/AdvReac Type Severity Reaction Status Date / Time lisinopril Allergy Other Verified 11/02/24 13:16 melon Allergy Anaphylaxis Verified 11/02/24 13:16 peanut Allergy Anaphylaxis Verified 11/02/24 13:16 tree nut Allergy Anaphylaxis Verified 11/02/24 13:16 Sulfa (Sulfonamide AdvReac Nausea Verified 11/02/24 13:16 Antibiotics) Family History Father Diabetes Heart disease Mother Cancer Surgical History Hx of umbilical hernia repair History of cardiac catheterization History of vasectomy Social History Smoking Status: Former smoker alcohol intake: never substance use type: does not use Review of Systems (Anesthesia) ROS Narrative System reviewed and no additional complaints, except as documented.
--- NOTE | 2024-11-02 14:00 | COLBX_PTH ---
PATIENT: RICHIE HAMEED LOC: EN U#:[id number] AGE/SX: 48/M ROOM: RE11/02/[address]: Dr. Arcadio Gleason DO : 1975 BED: DIS: 11/02/2024 SPEC #: [id number] RECD: 11/02/24 15:20 STATUS: MERT GUY #: [id number] STEFFEN: 11/02/24 14:[address]: Arcadio Gleason DEPT: SURGICAL PATHOLOGY RECD BY: Asiya Rico ENTERED: 11/03/24 07:08 SP TYPE: COLON BX OTHR DR: Kash Livingston, [employer]-C Tissues: A - Duodenum, NOS B - Gastric mucous membrane C - Ileum, NOS D - COLON BIOPSY E - SPLENIC FLEXURE Procedures: Surgery Specimen Level IV HEADER OPERATION: Colonoscopy with biopsies and polypectomy, EGD with biopsy PRE-OP DIAGNOSIS: Combined abdominal and pelvic pain, change in bowel habits, metabolic dysfunction-associated steatotic liver disease, fatigue, nausea TISSUE SUBMITTED: A- Duodenum biopsy, B- Gastric body biopsy, C- Terminal ileum biopsy, D- Random colon biopsy, E- Splenic flexure polyp MICROSCOPIC DIAGNOSIS A. Small bowel, duodenum, biopsy: * Normal villous architecture with Ariane gland hyperplasia and gastric mucin cell metaplasia. * Negative for increased intraepithelial lymphocytes. B. Stomach, body, biopsy: * Oxyntic mucosa with no specific pathologic change. * Negative for Helicobacter-like organisms (H&E). C. Small bowel, terminal ileum, biopsy: * Normal villous architectures with no specific pathologic change. D. Colon, random, biopsy: * No specific pathologic change. * The histologic features of microscopic colitis are not demonstrated. E. Colon, splenic flexure, polyp, biopsy: Tubular adenoma. MICROSCOPIC DESCRIPTION Slides are reviewed. GROSS DESCRIPTION A. Received in formalin in a container labeled with the patient's name, date of , and duodenum biopsy are multiple kelley-pink fragments of mucosal tissue measuring 0.7 x 0.6 x 0.2 cm in aggregate. Submitted in toto in A1. B. Received in formalin in a container labeled with the patient's name, date of , and gastric body biopsy are 3 kelley-pink fragments of mucosal tissue ranging from 0.3 x 0.2 x 0.2 cm to 0.5 x 0.2 x 0.2 cm. Submitted in toto in B1. C. Received in formalin in a container labeled with the patient's name, date of , and terminal ileum biopsy are multiple kelley-pink fragments of mucosal tissue measuring 0.6 x 0.5 x 0.2 cm in aggregate. Submitted in toto in C1. D. Received in formalin in a container labeled with the patient's name, date of , and random colonic biopsy are multiple kelley-pink fragments of mucosal tissue measuring 1.4 x 0.9 x 0.3 cm in aggregate. Submitted in toto in D1. E. Received in formalin in a container labeled with the patient's name, date of , and splenic flexure polyp is a 0.5 x 0.2 x 0.2 cm fragment of kelley-pink mucosal tissue. Submitted in toto in E1. [facility] 11/02/2024 CPT:43642d1
--- NOTE | 2024-11-02 14:22 | PCM.HP.STD ---
HPI - General General Date of Admission: 11/02/24 Date of Service: 11/02/24 Chief Complaint: abdominal pain HPI Narrative RICHIE HAMEED, is a 48 M who presents abdominal pain COLON: 04/25/2021 - TA and hyperplastic polyp - Five 5 mm polyps in the rectum, in the transverse colon and at the hepatic flexure, removed with a hot snare. Resected and retrieved. Recommendation: - Repeat colonoscopy in 3 years for surveillance based on pathology results. c/o mid upper abdominal pain, superficial, intermittent, couple months but worsening - sharp stabbing burning crawling sensation to the left side - random onset - sometimes eating - sometimes not eating - sometimes movement - reports when he has to urinate and defecate at the same time, feels like a blockage - straining with urination and with a BM x2-3 months - also increasing - has not discussed with PCP - denies any rectal bleeding - nausea without emesis, no change with eating - denies any HB - Xarelto for DVT and PE - Prednisone 40mg BID for psoriatic arthritis - takes this in bursts for flare ups HBVsAg, HBVsAb and HCV Ab were all negative in 2021 - he is due for MASLD f/u OV 10.28.24 Pt here for f/u and reports nausea, diarrhea, abdominal pain and c/o of back pain in his lower right back, and c/o of itchy dry skin. Pt reports loose dark stools and constipation. Has EGD/colonoscopy scheduled for this month. abd/pelvis CT 10/01/24 MELD- 10 [facility] Medical History History of edema History of atrial fibrillation Gilbert syndrome Wears glasses History of steroid therapy DVT (deep venous thrombosis) Restless legs Back pain History of ulceration History of GI bleed History of diverticulitis History of IBS Former smoker CPAP (continuous positive airway pressure) dependence Shortness of breath on exertion Leg cramps History of pain when walking History of echocardiogram History of stress test Cardiology follow-up encounter Osteoarthritis Liver disease Hypertriglyceridemia HTN (hypertension) Gout COPD (chronic obstructive pulmonary disease) Pulmonary embolism Home Medications ?Medication ?Instructions ?Recorded ?Last Taken ?Type albuterol sulfate 90 mcg/actuation 1 inh inhalation ONCE PRN COPD 04/20/21 Unknown History aerosol inhaler (ProAir HFA) cholecalciferol (vitamin D3) 50 50 mcg PO DAILY 04/23/21 Unknown History mcg (2,000 unit) capsule (Vitamin D3) colchicine 0.6 mg capsule 0.6 mg PO DAILY 04/23/21 Unknown History prednisone 20 mg tablet 10 mg PO PRN PRN GOUT 04/23/21 Unknown History icosapent ethyl 1 gram capsule 1 g PO BID 04/26/22 Unknown History (Vascepa) rivaroxaban 20 mg tablet (Xarelto) 20 mg PO DAILY 08/12/22 10/29/24 History spironolactone 25 mg tablet 25 mg PO DAILY 12/02/22 Unknown History carvedilol 6.25 mg tablet 6.25 mg PO BID 09/06/24 11/02/24 06:00 History cetirizine 10 mg capsule (Zyrtec) 10 mg PO QDAY ALLERGIES 09/06/24 Unknown History fluticasone fur. 100 mcg-umeclid 1 inh inhalation QDAY 09/06/24 Unknown History 62.5 mcg-vilant 25 mcg inhalat.powder (Trelegy Ellipta) Allergy/AdvReac Type Severity Reaction Status Date / Time lisinopril Allergy Other Verified 11/02/24 13:16 melon Allergy Anaphylaxis Verified 11/02/24 13:16 peanut Allergy Anaphylaxis Verified 11/02/24 13:16 tree nut Allergy Anaphylaxis Verified 11/02/24 13:16 Sulfa (Sulfonamide AdvReac Nausea Verified 11/02/24 13:16 Antibiotics) Family History Father Diabetes Heart disease Mother Cancer Surgical History Hx of umbilical hernia repair History of cardiac catheterization History of vasectomy Social History Smoking Status: Former smoker alcohol intake: never substance use type: does not use ROS Constitutional Constitutional: Denies fatigue, fever(s), poor appetite, weight gain or weight loss Gastrointestinal Gastrointestinal: Denies belching, bloating, change in bowel habits, change in stool character, chewing difficulty, coffee ground emesis, constipation, cramping, diarrhea, dyspepsia, dysphagia, early satiety, excessive flatus, fecal incontinence, heartburn, hematemesis, hematochezia, hemorrhoids, loose stools, melena, nausea, odynophagia, rectal bleeding, tenesmus, vomiting or weight changes Vital Signs Vital Signs Vital Signs: 11/02/24 13:18 11/02/24 13:18 11/02/24 13:56 Temperature 98.5 F 98.5 F Temperature Source Temporal Pulse Rate 99 99 Respiratory Rate 16 16 Respiratory Pattern Normal Blood Pressure 135/87 H 135/87 H Blood Pressure Mean 103 Blood Pressure Source Monitor Blood Pressure Position Sitting Blood Pressure Location Left Arm Pulse Ox 96 96 Oxygen Delivery Method Room Air Room Air Weight Weight: 336 lb 13.861 oz Body Mass Index (BMI) 47.0 Physical Exam Const alert, oriented x3, no apparent distress and healthy appearing General Appearance: cooperative GI normal to inspection, nondistended, normoactive bowel sounds, soft to palpation, non-tender and non-distended Percussion: normal to percussion Rectal Exam: deferred Assessment & Plan Assessment/Plan (1) Combined abdominal and pelvic pain: (2) Change in bowel habits: (3) Metabolic dysfunction-associated steatotic liver disease (MASLD): (4) Fatigue: QUALIFIERS: Fatigue type: unspecified Qualified Code(s): R53.83 - Other fatigue (5) Nausea: PLAN: Assessment and Plan Assessment and Plan (1) Abdominal pain: Status: Acute Plan: Patient abdominal pattern does not clinically make sense. He states pain separate in right upper quadrant left upper quadrant groin. Right upper quadrant moves in the bed to left side. He feels also separate right renal angle. Denies burning micturition. His bowel movements is also irregular. States had only 2 bowel movements normal last 6 months. Usually loose or more liquid. CT abdomen with IV contrast initially reviewed. Shows underdistention of colon but no inflammation. Colonic stool. He might have left upper quadrant dragging sensation for mild splenomegaly, 14.8 cm. Advised weight loss, Metamucil twice daily. Patient plan for EGD and colonoscopy on 11/02. Further plan after the EGD and colonoscopy. Patient has positive TB QuantiFERON criteria (2) Metabolic dysfunction-associated steatotic liver disease (MASLD): Status: Chronic Plan: Patient had liver ultrasound with elastography in September 2022 which reported 11.7 kPa. Liver ultrasound shows enlarged, fatty infiltration. GB wall 2.3 mm. 2 small gallbladder polyps measuring about 3 mm. No gallstones. No pericholecystic fluid. CBD 3.5 mm. Repeat liver ultrasound with elastography including spleen (3) Gilbert syndrome: Status: Chronic Plan: Patient has Gilbert's disease with total bilirubin about 2.5-2.2 mg/dL. Mainly indirect hyperlipidemia.
--- NOTE | 2024-11-02 15:09 | PCM.POST.ANE ---
Anesthesia: Postop Eval I Current Vital Signs Temperature: 97 F Pulse Rate: 62 Blood Pressure: 102/76 Respiratory Rate: 16 Pulse Ox: 94 Oxygen Delivery Method: Room Air Assessment Airway patent: Yes Spontaneous unlabored respirations: Yes Mental status: Awake and Calm nausea: No Vomiting: No Anesthesia Complication: No Fluid Hydration Crystalloid volume administer (ml): 50 Total IV fluid infused: 50 Progress Note Anesthesia document: Postop Eval 1 completed: Yes
--- NOTE | 2024-11-02 15:12 | OP.EGD_ITS ---
Patient Name: Grant King Procedure Date: 11/02/2024 2:35 PM Date of : 1975 Age: 48 Procedure: Upper GI endoscopy Indications: Epigastric abdominal pain, Functional Dyspepsia Providers: Arcadio Gleason DO Medicines: Monitored Anesthesia Care Patient Profile: This is a 48 year old male. Refer to note in patient chart for documentation of history and physical. Patient has symptoms of acute abdominal cramping, chronic abdominal cramping, chronic abdominal distention, acute epigastric abdominal pain, chronic heartburn and chronic nausea. Complications: No immediate complications. Procedure: Pre-Anesthesia Assessment: - Prior to the procedure, a History and Physical was performed, and patient medications and allergies were reviewed. The patient is competent. The risks and benefits of the procedure and the sedation options and risks were discussed with the patient. All questions were answered and informed consent was obtained. Patient identification and proposed procedure were verified by the physician in the pre-procedure area. Mental Status Examination: alert and oriented. Airway Examination: normal oropharyngeal airway and neck mobility. Respiratory Examination: clear to auscultation. CV Examination: normal. Prophylactic Antibiotics: The patient does not require prophylactic antibiotics. Prior Anticoagulants: The patient has taken no anticoagulant or antiplatelet agents except for NSAID medication. ASA Grade Assessment: II - A patient with mild systemic disease. After reviewing the risks and benefits, the patient was deemed in satisfactory condition to undergo the procedure. The anesthesia plan was to use monitored anesthesia care (MAC). Immediately prior to administration of medications, the patient was re-assessed for adequacy to receive sedatives. The heart rate, respiratory rate, oxygen saturations, blood pressure, adequacy of pulmonary ventilation, and response to care were monitored throughout the procedure. The physical status of the patient was re-assessed after the procedure. After obtaining informed consent, the endoscope was passed under direct vision. Throughout the procedure, the patient's blood pressure, pulse, and oxygen saturations were monitored continuously. The Colonoscope was introduced through the mouth, and advanced to the third part of the duodenum. Small bowel enteroscopy was deemed necessary. The upper GI endoscopy was accomplished without difficulty. The patient tolerated the procedure well. Scope In: 2:41:24 PM Scope Out: 2:44:33 PM Total Procedure Duration Time 0 hours 3 minutes 9 seconds Findings: The examined esophagus was normal. Patchy mildly erythematous mucosa without bleeding was found in the gastric body. Biopsies were taken with a cold forceps for histology. Verification of patient identification for the specimen was done. Estimated blood loss was minimal. Biopsies were taken with a cold forceps for Helicobacter pylori testing. Verification of patient identification for the specimen was done. Estimated blood loss was minimal. Patchy mildly erythematous mucosa without active bleeding and with no stigmata of bleeding was found in the duodenal bulb and in the first portion of the duodenum. Impression: - Normal esophagus. - Erythematous mucosa in the gastric body. Biopsied. - Erythematous duodenopathy. Recommendation: - Discharge patient to home. - Resume previous diet. - Continue present medications. - Await pathology results. Procedure Code(s): --- Professional --- 17711, Small intestinal endoscopy, enteroscopy beyond second portion of duodenum, not including ileum; with biopsy, single or multiple CPT copyright 2021 [employer]. All rights reserved. The codes documented in this report are preliminary and upon information operator review may be revised to meet current compliance requirements. Arcadio Gleason DO 11/02/2024 3:11:41 PM This report has been signed electronically. Number of Addenda: 0 Note Initiated On: 11/02/2024 2:35 PM
--- NOTE | 2024-11-02 15:12 | OP.CCLET_ITS ---
11/02/2024 Tho Sykes Re : Upper GI endoscopy procedure for Grant King Dear Yara This procedure was performed on Saturday, November 02, 2024. My impressions and recommendations are as follows: Impressions : - Normal esophagus. - Erythematous mucosa in the gastric body. Biopsied. - Erythematous duodenopathy. Recommendations : - Discharge patient to home. - Resume previous diet. - Continue present medications. - Await pathology results. My findings are described in the full procedure note, which is enclosed. If I can be of further assistance, please feel free to contact me at . Sincerely, Arcadio Gleason, 11/02/2024 3:11:41 PM This report has been signed electronically.
--- NOTE | 2024-11-02 15:16 | OP.COLON_ITS ---
Patient Name: Grant King Procedure Date: 11/02/2024 2:44 PM Date of : 1975 Age: 48 Procedure: Colonoscopy Indications: Generalized abdominal pain, Chronic diarrhea Providers: Arcadio Gleason DO Medicines: Monitored Anesthesia Care Patient Profile: This is a 48 year old male. Refer to note in patient chart for documentation of history and physical. Patient has symptoms of acute abdominal cramping, chronic abdominal cramping, chronic abdominal distention, acute epigastric abdominal pain, chronic heartburn and chronic nausea. Last Colonoscopy: several years ago. Complications: No immediate complications. Procedure: Pre-Anesthesia Assessment: - Prior to the procedure, a History and Physical was performed, and patient medications and allergies were reviewed. The patient is competent. The risks and benefits of the procedure and the sedation options and risks were discussed with the patient. All questions were answered and informed consent was obtained. Patient identification and proposed procedure were verified by the physician in the pre-procedure area. Mental Status Examination: alert and oriented. Airway Examination: normal oropharyngeal airway and neck mobility. Respiratory Examination: clear to auscultation. CV Examination: normal. Prophylactic Antibiotics: The patient does not require prophylactic antibiotics. Prior Anticoagulants: The patient has taken no anticoagulant or antiplatelet agents except for NSAID medication. ASA Grade Assessment: II - A patient with mild systemic disease. After reviewing the risks and benefits, the patient was deemed in satisfactory condition to undergo the procedure. The anesthesia plan was to use monitored anesthesia care (MAC). Immediately prior to administration of medications, the patient was re-assessed for adequacy to receive sedatives. The heart rate, respiratory rate, oxygen saturations, blood pressure, adequacy of pulmonary ventilation, and response to care were monitored throughout the procedure. The physical status of the patient was re-assessed after the procedure. After I obtained informed consent, the scope was passed under direct vision. Throughout the procedure, the patient's blood pressure, pulse, and oxygen saturations were monitored continuously. The Colonoscope was introduced through the anus and advanced to the terminal ileum. The colonoscopy was performed without difficulty. The patient tolerated the procedure well. The quality of the bowel preparation was adequate. The terminal ileum, ileocecal valve, appendiceal orifice, and rectum were photographed. Scope In: 2:47:02 PM Scope Withdrawal Time 0 hours 12 minutes 56 seconds Scope Out: 3:01:49 PM Total Procedure Duration Time 0 hours 14 minutes 47 seconds Findings: The perianal and digital rectal examinations were normal. An 8 mm polyp was found in the splenic flexure. The polyp was sessile. The polyp was removed with a hot snare. Resection and retrieval were complete. Verification of patient identification for the specimen was done. Estimated blood loss was minimal. A few small-mouthed diverticula were found in the recto-sigmoid colon. An area of moderately congested mucosa was found in the entire colon. Biopsies were taken with a cold forceps for histology. Verification of patient identification for the specimen was done. Estimated blood loss was minimal. Stool was found in the sigmoid colon, in the transverse colon, at the hepatic flexure and in the ascending colon. Fluid aspiration for microbiology, bacterial cultures and Clostridium difficile was performed. Verification of patient identification for the specimen was done. Estimated blood loss was minimal. The terminal ileum appeared normal. Biopsies were taken with a cold forceps for histology. Verification of patient identification for the specimen was done. Estimated blood loss was minimal. Impression: - One 8 mm polyp at the splenic flexure, removed with a hot snare. Resected and retrieved. - Diverticulosis in the recto-sigmoid colon. - Congested mucosa in the entire examined colon. Biopsied. - Stool in the sigmoid colon, in the transverse colon, at the hepatic flexure and in the ascending colon. Fluid aspiration performed. - The examined portion of the ileum was normal. Biopsied. Recommendation: - Discharge patient to home. - Resume previous diet. - Continue present medications. - Await pathology results. - Repeat colonoscopy in 5 years for surveillance. Procedure Code(s): --- Professional --- 49371, Colonoscopy, flexible; with removal of tumor(s), polyp(s), or other lesion(s) by snare technique 68710, 59, Colonoscopy, flexible; with biopsy, single or multiple CPT copyright 2021 [employer]. All rights reserved. The codes documented in this report are preliminary and upon fringing machine operator review may be revised to meet current compliance requirements. Arcadio Gleason DO 11/02/2024 3:16:18 PM This report has been signed electronically. Number of Addenda: 0 Note Initiated On: 11/02/2024 2:44 PM
--- NOTE | 2024-11-02 15:17 | OP.CCLET_ITS ---
11/02/2024 Tho Sykes Re : Colonoscopy procedure for Grant King Oliver Yara This procedure was performed on Saturday, November 02, 2024. My impressions and recommendations are as follows: Impressions : - One 8 mm polyp at the splenic flexure, removed with a hot snare. Resected and retrieved. - Diverticulosis in the recto-sigmoid colon. - Congested mucosa in the entire examined colon. Biopsied. - Stool in the sigmoid colon, in the transverse colon, at the hepatic flexure and in the ascending colon. Fluid aspiration performed. - The examined portion of the ileum was normal. Biopsied. Recommendations : - Discharge patient to home. - Resume previous diet. - Continue present medications. - Await pathology results. - Repeat colonoscopy in 5 years for surveillance. My findings are described in the full procedure note, which is enclosed. If I can be of further assistance, please feel free to contact me at . Sincerely, Arcadio Gleason, 11/02/2024 3:16:18 PM This report has been signed electronically.
--- NOTE | 2024-11-02 16:18 | POSTOPAN2_ITS ---
Anesthesia Postop Eval I Sum Postop Eval Completion status Anesthesia document: Postop Eval 1 completed: Yes Anesthesia Postop Eval I Summary Anesthesia Postop Eval I Summary: Anesthesia Postop Eval I: Assessment Summary Airway patent Yes 11/02/24 15:10 [email or web address] Spontaneous unlabored Yes 11/02/24 15:10 [email or web address] respirations Mental status Awake,Calm 11/02/24 15:10 [email or web address] nausea No 11/02/24 15:10 [email or web address] Vomiting No 11/02/24 15:10 [email or web address] Anesthesia Postop Eval I: Fluid Summary Crystalloid volume administer 50 11/02/24 15:10 [email or web address] (ml) Colloids volume administered ( ml) Blood Product volume administered (ml) Total IV fluid infused 50 11/02/24 15:10 [email or web address] Anesthesia Postop Eval I: Summary Notes Anesthesia Complication No 11/02/24 15:10 [email or web address] Anesthesia Complication Comment: Post-operative progress note Anesthesia: Postop Eval II Evaluation Mental status: Awake and Calm Pain Level: 0 nausea: No Vomiting: No Complications Anesthesia Complication: No
--- NOTE | 2024-11-02 16:18 | PCM.POSTANE2 ---
Anesthesia Postop Eval I Sum Postop Eval Completion status Anesthesia document: Postop Eval 1 completed: Yes Anesthesia Postop Eval I Summary Anesthesia Postop Eval I Summary: Anesthesia Postop Eval I: Assessment Summary Airway patent Yes 11/02/24 15:10 [email or web address] Spontaneous unlabored Yes 11/02/24 15:10 [email or web address] respirations Mental status Awake,Calm 11/02/24 15:10 [email or web address] nausea No 11/02/24 15:10 [email or web address] Vomiting No 11/02/24 15:10 [email or web address] Anesthesia Postop Eval I: Fluid Summary Crystalloid volume administer 50 11/02/24 15:10 [email or web address] (ml) Colloids volume administered ( ml) Blood Product volume administered (ml) Total IV fluid infused 50 11/02/24 15:10 [email or web address] Anesthesia Postop Eval I: Summary Notes Anesthesia Complication No 11/02/24 15:10 [email or web address] Anesthesia Complication Comment: Post-operative progress note Anesthesia: Postop Eval II Evaluation Mental status: Awake and Calm Pain Level: 0 nausea: No Vomiting: No Complications Anesthesia Complication: No
== END 2024-11-02 15:47 | disposition home or self-care (01) ==
LOC: EN 12:56 → AC 13:00
PROVIDERS: PCP Nurse Practitioner Primary Care; Referring Provider Nurse Practitioner Primary Care; Visit Provider Internal Medicine Gastroenterology
PROC: 0DJD8ZZ Inspection of Lower Intestinal Tract, Via Natural or Artificial Opening Endoscopic (ICD-10-PCS; CPT 45378; principal; 2024-11-02 13:55)
DX: D12.3 Benign neoplasm of transverse colon (principal); E88.89 Other specified metabolic disorders; J44.9 Chronic obstructive pulmonary disease, unspecified; K63.5 Polyp of colon; Z79.01 Long term (current) use of anticoagulants; Z87.891 Personal history of nicotine dependence; I10 Essential (primary) hypertension; K57.90 Diverticulosis of intestine, part unspecified, without perforation or abscess without bleeding; Z86.0102 Personal history of hyperplastic colon polyps; Z79.899 Other long term (current) drug therapy; E80.4 Gilbert syndrome; R19.5 Other fecal abnormalities; R10.2 Pelvic and perineal pain; R53.83 Other fatigue; R10.11 Right upper quadrant pain; K82.4 Cholesterolosis of gallbladder; E78.5 Hyperlipidemia, unspecified; K52.9 Noninfective gastroenteritis and colitis, unspecified; K31.A19 Gastric intestinal metaplasia without dysplasia, unspecified site
CPT/HCPCS: 45380; 45385; 43239; 87493; 87506; 88305; A4216; J2405

== ENCOUNTER → 2025-01-31 | Outpatient (CLI) | payer OTHER, SELFPAY ==
--- NOTE | 2025-01-31 07:23 | US_ITS ---
PROCEDURE: ABD LIMITED W/ ELASTOGRAPHY REASON FOR EXAM: LIVER FIBROSIS, GB POLYP. RUQ PAIN COMPARISON: Prior study dated October 18, 2022. TECHNIQUE: Right upper quadrant abdominal ultrasound. Jenn ElastQ Imaging shear wave elastography for non-invasive assessment of liver tissue stiffness. Jenn EPIQ Elite. FINDINGS: LIVER: Size: Enlarged (hepatomegaly) Length: 22.1 cm cm Echotexture: Diffusely echogenic suggesting fatty infiltration Contour: Normal Lesions: None identified Elastography: EQI Med: 7.9 kPa EQI Med Beto: 1.61 m/s IQR/Med: 17 %* GALLBLADDER: There are 2, small polyps adherent to the gallbladder wall. The larger polyp measures 4 mm x 4 mm x 3 mm. COMMON BILE DUCT: Normal measuring 3.6 mm . PANCREAS: Normal Visualized portions of the right kidney are unremarkable. No right upper quadrant ascites. US/ABD Limited w/ Elastography IMPRESSION: Mild hepatic fibrosis. Hepatomegaly and diffuse fatty infiltration of the liver. Small gallbladder polyps. Reference Values: SRU <1.37 m/s (5.7kPa): No to mild fibrosis 1.37 m/s - 2.2 m/s: Moderate to severe fibrosis >2.2 m/s (15kPa): Significant fibrosis / cirrhosis METAVIR Score F2 or higher: 1.34 m/s (5.7kPa) F3 or higher: 1.55 m/s (7.3kPa) F4: 1.80 m/s (10kPa) * If the IQR/Med is >30%, the variance in the measurements is a large and the a ccuracy of the measurement may be in question. Reading Location: [place] [id number]
== END | disposition home or self-care (01) ==
LOC: US 07:20
PROVIDERS: PCP Nurse Practitioner Primary Care; Referring Provider Internal Medicine; Visit Provider Internal Medicine
DX: K76.0 Fatty (change of) liver, not elsewhere classified (principal); R19.4 Change in bowel habit; R10.2 Pelvic and perineal pain
CPT/HCPCS: 76705; 76981